=== PATIENT | male | born 1945 ===

== ENCOUNTER → 2016-06-08 | Outpatient (CLI) | payer OTHER | LOC: C.LABUPNIT 14:16 | PROVIDERS: ATTEND Family Medicine | DX: J10.1 Influenza due to other identified influenza virus with other respiratory manifestations (principal) ==

== ENCOUNTER → 2016-11-02 | Outpatient (CLI) | payer OTHER ==
[2016-11-04 23:47] LABS: CRYPTOSPORIDIUM AG TC 37213 NOT DETECTED (NOT DETECTED); O&P GIARDIA AG NOT DETECTED (NOT DETECTED)
== END ==
LOC: C.LABUPNIT 08:30
PROVIDERS: ATTEND Nurse Practitioner Family
DX: A04.7 Enterocolitis due to Clostridium difficile (principal)

== ENCOUNTER → 2016-11-03 | Outpatient (CLI) | payer OTHER | LOC: C.LABUPNIT 11:51 | PROVIDERS: ATTEND Nurse Practitioner Family | DX: S71.001D Unspecified open wound, right hip, subsequent encounter (principal); X58.XXXD Exposure to other specified factors, subsequent encounter ==

== ENCOUNTER 2017-03-11 09:20 | Inpatient (IN) | payer OTHER ==
[~2017-03-11] VITALS: Ht 182.9 cm; Wt 55.7 kg
[2017-03-11] MEDS ORDERED: ONDANSETRON 4MG OD TAB PO STA (09:28)
[2017-03-11] MEDS ORDERED: HYDROmorphone INJ 0.5 MG/0.5 ML SYR IM STA (09:28)
--- NOTE | 2017-03-11 10:02 | DIAGNOSTIC IMAGING REPORT ---
PELVIS 1 OR 2 VIEW ROUTINE CLINICAL HISTORY: Left hip pain COMPARISON STUDY: No previous studies for comparison. FINDINGS: There is acute subcapital left hip fracture. There is no dislocation. There is a moderate amount of stool within the rectal vault. Degenerative changes are present within the lower lumbar spine. IMPRESSION: Subcapital left hip fracture Electronically signed by: Washington Chen M.D. 03/11/2017 10:00 AM Dictated Date/Time: 03/11/2017 10:00 AM
--- NOTE | 2017-03-11 10:03 | DIAGNOSTIC IMAGING REPORT ---
L FEMUR 4 VIEWS ROUTINE CLINICAL HISTORY: Left hip pain. Trauma. COMPARISON: None. DISCUSSION: There is a subcapital left hip fracture. No additional femoral fractures are visualized. Gastric calcifications are evident. IMPRESSION: Subcapital left hip fracture. Electronically signed by: Washington Chen M.D. 03/11/2017 10:01 AM Dictated Date/Time: 03/11/2017 10:01 AM
[2017-03-11] MEDS ORDERED: DONE1TAB11 PO (10:07)
[2017-03-11] MEDS ORDERED: NUTR-1049 PO (10:07)
[2017-03-11] MEDS ORDERED: THIA50TA3 PO (10:07)
[2017-03-11] MEDS ORDERED: ACET-1311 PO ×2 (10:07)
[2017-03-11] MEDS ORDERED: MINEENE9 PR (10:07)
[2017-03-11] MEDS ORDERED: MULT-506 PO (10:07)
[2017-03-11] MEDS ORDERED: MOML PO (10:07)
[2017-03-11] MEDS ORDERED: FOLI1TAB8 PO (10:07)
[2017-03-11] MEDS ORDERED: TRAM-10 PO (10:07)
[2017-03-11] MEDS ORDERED: ASCO500T16 PO (10:07)
[2017-03-11] MEDS ORDERED: MIRT15TA3 PO (10:07)
[2017-03-11] MEDS ORDERED: BISA10SU38 PR (10:07)
[2017-03-11] MEDS ORDERED: HYDROmorphone INJ 0.5 MG/0.5 ML SYR IV PRN (10:15)
--- NOTE | 2017-03-11 10:18 | DIAGNOSTIC IMAGING REPORT ---
CHEST ONE VIEW PORTABLE HISTORY: Preop. Left hip fracture. COMPARISON: None. FINDINGS: The lungs are hyperexpanded with apical predominant emphysematous changes. The heart is normal in size. No pleural effusions. No pneumothorax. Old, healed left 11th rib fracture. A 3 cm irregular density within the left upper lobe. Mild interstitial thickening which is likely chronic. IMPRESSION: 1. A 3 cm irregular density within the left upper lobe. Recommend further evaluation with a chest CT to exclude a pulmonary lesion. 2. Emphysema. Electronically signed by: Mehran Jones M.D. 03/11/2017 10:17 AM Dictated Date/Time: 03/11/2017 10:15 AM
--- NOTE | 2017-03-11 10:56 | EMERGENCY ROOM VISIT NOTE ---
History First contact with patient: 09:27 Chief Complaint: HIP PAIN Stated Complaint: FALL/L-HIP PAIN History of Present Illness The patient is a 71 year old male who presents to the Emergency Room with complaints of left hip pain. Patient fell trying to a related to the bathroom. He reports that he cannot walk on it. The patient is a DO NOT RESUSCITATE. He was sent here from the heart side. The patient has a son who does not wish to be contacted unless the patient is . The fall happened earlier today he denies hitting his head and has no other complaints.. Review of Systems See HPI for pertinent positives & negatives. A total of 10 systems reviewed and were otherwise negative. Past Medical/Surgical History Medical Problems: (1) Dementia (2) Depression (3) Hip fracture, left Surgical Problems: (1) Hx of tonsillectomy Dementia Alcohol Abuse malnourishment Social History Smoking Status: Current Every Day Smoker Alcohol Use: none Drug Use: none Marital Status: single Housing Status: correction Occupation Status: retired Current/Historical Medications Scheduled Ascorbic Acid (Ascorbic Acid), 500 MG PO DAILY Donepezil Hydrochloride (Donepezil Hcl), 5 MG PO DAILY Folic Acid (Folvite), 1 MG PO DAILY Mirtazapine (Remeron), 15 MG PO HS Multivitamin (Multivitamin), 1 TAB PO DAILY Nutritional Supplements (Prosource No Carb), 1 PKT PO DAILY Thiamine Hcl (Vitamin B-1), 50 MG PO DAILY Scheduled PRN Acetaminophen (Tylenol), 650 MG PO Q4 PRN for Fever Acetaminophen (Tylenol), 650 MG PO Q6 PRN for Pain Bisacodyl (Dulcolax), 10 MG MD DAILY PRN for Constipation Magnesium Hydroxide (Milk Of Magnesia), 30 ML PO DAILY PRN for Constipation Mineral Oil (Enema Mineral Oil), 1 BTL MD DAILY PRN for Constipation Tramadol (Ultram), 50 MG PO BID PRN for Pain Physical Exam Vital Signs Date Time Temp Pulse Resp B/P (MAP) Pulse Ox O2 Delivery O2 Flow Rate FiO2 03/11/17 12:45 77 18 118/62 92 Room Air 03/11/17 11:02 72 18 113/58 91 Room Air 03/11/17 09:27 36.6 74 18 130/69 94 Room Air Physical Exam GENERAL: Patient is a cachectic-appearing male HEAD: Normocephalic atraumatic EYES: Ocular movements intact pupils equal and react to light OROPHARYNX mucous membranes are moist no exudates present no erythema or edema present NECK: Supple no nuchal rigidity CHEST: Good equal expansion LUNGS: Clear and equal to auscultation CARDIAC: Normal S1 and S2 ABDOMEN: Soft nontender no guarding BACK: No CVA tenderness EXTREMITIES: palpable pain left hip area, pt can move hip freely, + distal pulse NEURO: Patient is following commands is answering questions appropriately. Alert and oriented x3 Cranial Nerves 2-12 grossly intact Medical Decision & Procedures ER Provider Diagnostic Interpretation: CHEST ONE VIEW PORTABLE HISTORY: Preop. Left hip fracture. COMPARISON: None. FINDINGS: The lungs are hyperexpanded with apical predominant emphysematous changes. The heart is normal in size. No pleural effusions. No pneumothorax. Old, healed left 11th rib fracture. A 3 cm irregular density within the left upper lobe. Mild interstitial thickening which is likely chronic. IMPRESSION: 1. A 3 cm irregular density within the left upper lobe. Recommend further evaluation with a chest CT to exclude a pulmonary lesion. 2. Emphysema. Electronically signed by: Mehran Jones M.D. 03/11/2017 10:17 AM Dictated Date/Time: 03/11/2017 10:15 AM L FEMUR 4 VIEWS ROUTINE CLINICAL HISTORY: Left hip pain. Trauma. COMPARISON: None. DISCUSSION: There is a subcapital left hip fracture. No additional femoral fractures are visualized. Gastric calcifications are evident. IMPRESSION: Subcapital left hip fracture. Electronically signed by: Washington Chen M.D. 03/11/2017 10:01 AM Dictated Date/Time: 03/11/2017 10:01 AM PELVIS 1 OR 2 VIEW ROUTINE CLINICAL HISTORY: Left hip pain COMPARISON STUDY: No previous studies for comparison. FINDINGS: There is acute subcapital left hip fracture. There is no dislocation. There is a moderate amount of stool within the rectal vault. Degenerative changes are present within the lower lumbar spine. IMPRESSION: Subcapital left hip fracture Electronically signed by: Washington Chen M.D. 03/11/2017 10:00 AM Dictated Date/Time: 03/11/2017 10:00 AM Laboratory Results Medications Administered Medications (Trade) Dose Ordered Sig/Eugenia Route Start Time Stop Time Status Last Admin Dose Admin Haloperidol (Haldol Tab) 10 mg NOW STAT PO 03/11/17 13:12 03/11/17 13:14 DC 03/11/17 13:22 10 MG Lorazepam (Ativan Tab) 2 mg NOW STAT SL 03/11/17 13:12 03/11/17 13:14 DC 03/11/17 13:21 2 MG Medical Decision This is a 71-year-old male who presents emergency Department with a left hip fracture. The patient is complaining of left hip pain. He was sent for x-rays of his hip and given a shot of Dilaudid here in the emergency department. X- rays are concerning for a subcapital hip fracture. The patient is refusing any treatment. He is also DO NOT RESUSCITATE. He will not allow the nurses to get an EKG or even laboratory work or even start an IV. Based on these findings I did discuss the case with heart side where the patient is residing as well as orthopedics as well as the patient's son. The patient's son only wishes to be contacted if the patient is . I did however speak with the patient's son who asked for orthopedic recommendations. The patient was then seen by ortho who convinced the patient that he needs surgery. The patient was given Haldol and Ativan in an IV was able to be established. He was discussed with the hospitalist service who agreed to admit the patient. Impression Primary Impression: Hip fracture, left Departure Information Dispostion Still a Patient Referrals Presley Beal (PCP) Patient Instructions My [facility] Problem Qualifiers Primary Impression: Hip fracture, left Encounter type: initial encounter Fracture type: closed Qualified Codes: S72.002A - Fracture of unspecified part of neck of left femur, initial encounter for closed fracture
[2017-03-11] MEDS ORDERED: HALOPERIDOL 5 MG TAB PO STA (13:12)
[2017-03-11] MEDS ORDERED: LORAZEPAM 1 MG TAB SL STA (13:12)
[2017-03-11 14:00] VITALS: O2SAT 93; BMI 15.4
[2017-03-11] MEDS ORDERED: SOD PHOSPHATE/SOD BIPHOSPHATE ENEMA 132 ML BTL PR PRN (14:15)
[2017-03-11] MEDS ORDERED: ONDANSETRON INJ 2 MG/ML 2 ML VIAL IV PRN (14:15)
[2017-03-11] MEDS ORDERED: POLYETHYLENE (MIRALAX) 17 GM PACK PO PRN (14:15)
[2017-03-11] MEDS ORDERED: MAGNESIUM HYDROXIDE SUSP 30 ML UDC PO PRN (14:15)
[2017-03-11] MEDS ORDERED: NALOXONE HCL 0.4 MG/1 ML VIAL/CARP IV PRN (14:15)
[2017-03-11] MEDS ORDERED: BISACODYL 10 MG SUPP PR PRN (14:15)
[2017-03-11 14:25] LABS: BASO % 0.1 %; BASO ABS # 0.01 K/uL (0-0.2); EOS % 0.4 %; EOS ABS # 0.05 K/uL (0-0.5); HEMATOCRIT 42.6 % (42-52); HEMOGLOBIN 13.9 g/dL (14.0-18.0); IG# 0.03 K/uL (0.00-0.02); LYMPH % 4.6 %; LYMPH ABS # 0.59 K/uL (1.2-3.4); MEAN CORPUSCULAR HEMOGLOBIN 27.7 pg (25-34); MEAN CORPUSCULAR HGB CONC 32.6 g/dl (32-36); MEAN PLATELET VOLUME 11.2 fL (7.4-10.4); MONO % 6.2 %; NEUT % 88.5 %; NEUT ABS # 11.34 K/uL (1.4-6.5); PLATELET COUNT 360 K/uL (130-400); RED CELL DISTRIBUTION WIDTH CV 14.9 % (11.5-14.5); RED CELL DISTRIBUTION WIDTH SD 46.2 fL (36.4-46.3); WHITE BLOOD COUNT 12.82 K/uL (4.8-10.8)
[2017-03-11 14:28] LABS: PTT PATIENT 25.9 SECONDS (21.0-31.0)
[2017-03-11] MEDS ORDERED: MoRPHine SULFATE 2 MG/ML CARP ONE (14:29)
[2017-03-11 14:32] LABS: CALCIUM 8.9 mg/dl (8.5-10.1); CREATININE 0.9 mg/dl (0.60-1.40); POTASSIUM 3.8 mmol/L (3.5-5.1)
[2017-03-11 14:58] VITALS: BP 110/68; PULSE 90; TEMP 36.9; O2SAT 94
--- NOTE | 2017-03-11 15:21 | History and Physical ---
History & Physical Date & Time of Service: Mar 11, 2017 at 14:31 Chief Complaint: Fall/L-Hip Pain Primary Care Physician: Presley Beal History of Present Illness Source: patient, hospital records, senior living Pt is 71 y/o M with PMH heavy alcohol use, no use alcohol for couple of years, dementia, depression presented to ER from [facility] with c/o fall and left hip pain. Pt oriented to person, limited history able to be obtained from pt. Reported that pt ambulating to bathroom this morning when he fell and c/o L hip pain and inability to stand or walk. Unsure if hit his head. Pt only c/o pain to L hip. No known fever, SHETTY, CP, SOB, cough, abdominal pain, urinary symptoms In ER pt initially not agreeable to any labs, IV. Femur x-ray: Subcapital left hip fracture. CXR: 3 cm irregular density within the left upper lobe. Emphysema. Pt was given zofran ODT, Dilaudid 0.5mg IM x 2. Then agreeable to IV and labs and agrees to hospital admission for hip fracture and possible repair. Pt given ativan 2mg SL, Haldol 10mg po and dialudid 0.5mg IV. WBC: 12.8. Pt refuses michael. pending UA. Past Medical/Surgical History Medical Problems: (1) Dementia Status: Chronic (2) Depression Status: Chronic Surgical Problems: (1) Hx of tonsillectomy Status: Resolved Family History Diabetes mellitus GRANDMOTHER FH: leukemia FATHER ( age 36) Social History Smoking Status: Former Smoker Smokeless Tobacco Use: Yes Alcohol Use: not used ETOH for couple of years Drug Use: none Marital Status: single Housing status: other ([facility]) Occupational Status: retired Allergies Coded Allergies: No Known Allergies (Unverified , 03/11/17) Home Medications Scheduled Ascorbic Acid (Ascorbic Acid), 500 MG PO DAILY Donepezil Hydrochloride (Donepezil Hcl), 5 MG PO DAILY Folic Acid (Folvite), 1 MG PO DAILY Mirtazapine (Remeron), 15 MG PO HS Multivitamin (Multivitamin), 1 TAB PO DAILY Nutritional Supplements (Prosource No Carb), 1 PKT PO DAILY Thiamine Hcl (Vitamin B-1), 50 MG PO DAILY Scheduled PRN Acetaminophen (Tylenol), 650 MG PO Q4 PRN for Fever Acetaminophen (Tylenol), 650 MG PO Q6 PRN for Pain Bisacodyl (Dulcolax), 10 MG CO DAILY PRN for Constipation Magnesium Hydroxide (Milk Of Magnesia), 30 ML PO DAILY PRN for Constipation Mineral Oil (Enema Mineral Oil), 1 BTL CO DAILY PRN for Constipation Tramadol (Ultram), 50 MG PO BID PRN for Pain Review of Systems Further ROS not able to be obtained secondary to pt's mentation. Physical Exam Vital Signs Date Time Temp Pulse Resp B/P (MAP) Pulse Ox O2 Delivery O2 Flow Rate FiO2 03/11/17 14:10 78 18 125/69 91 Room Air 03/11/17 14:00 93 Room Air 03/11/17 13:34 93 Room Air 03/11/17 12:45 77 18 118/62 92 Room Air 03/11/17 11:02 72 18 113/58 91 Room Air 03/11/17 09:27 36.6 74 18 130/69 94 Room Air General Appearance: + cachetic, + thin Head: normocephalic, atraumatic Eyes: normal inspection, PERRL, EOMI, sclerae normal ENT: hearing grossly normal, pharynx normal, + pertinent finding (mucous membranes moist) Neck: supple, no JVD, trachea midline Respiratory/Chest: chest non-tender, lungs clear, normal breath sounds, no respiratory distress, no accessory muscle use Cardiovascular: regular rate, rhythm, no edema, normal peripheral pulses Abdomen/GI: normal bowel sounds, non tender, soft Extremities/Musculoskelatal: normal capillary refill, no pedal edema, + pertinent finding (Left hip with tenderness to palpation, pt holding left leg straight and unwilling to move. Left knee and ankle non-tender. R lower extremity non-tender, ROM intact, bilateral upper extremities non-tender, ROM intact. upper and lower extremities bilaterally with distal pulses intact, brisk capillary refill, sensation to light touch intact) Neurologic/Psych: alert, + pertinent finding (oriented to person, not oriented to place or time. Irritable ) Skin: normal color, warm/dry Diagnostics Laboratory Results Results Past 24 Hours Test 03/11/17 13:50 Range/Units White Blood Count 12.82 4.8-10.8 K/uL Red Blood Count 5.01 4.7-6.1 M/uL Hemoglobin 13.9 14.0-18.0 g/dL Hematocrit 42.6 42-52 % Mean Corpuscular Volume 85.0 80-100 fL Mean Corpuscular Hemoglobin 27.7 25-34 pg Mean Corpuscular Hemoglobin Concent 32.6 32-36 g/dl Platelet Count 360 130-400 K/uL Mean Platelet Volume 11.2 7.4-10.4 fL Neutrophils (%) (Auto) 88.5 % Lymphocytes (%) (Auto) 4.6 % Monocytes (%) (Auto) 6.2 % Eosinophils (%) (Auto) 0.4 % Basophils (%) (Auto) 0.1 % Neutrophils # (Auto) 11.34 1.4-6.5 K/uL Lymphocytes # (Auto) 0.59 1.2-3.4 K/uL Monocytes # (Auto) 0.80 0.11-0.59 K/uL Eosinophils # (Auto) 0.05 0-0.5 K/uL Basophils # (Auto) 0.01 0-0.2 K/uL RDW Standard Deviation 46.2 36.4-46.3 fL RDW Coefficient of Variation 14.9 11.5-14.5 % Immature Granulocyte % (Auto) 0.2 % Immature Granulocyte # (Auto) 0.03 0.00-0.02 K/uL Prothrombin Time 10.5 9.0-12.0 SECONDS Prothromb Time International Ratio 1.0 0.9-1.1 Activated Partial Thromboplast Time 25.9 21.0-31.0 SECONDS Partial Thromboplastin Ratio 1.0 Diagnostic Radiology CXR: IMPRESSION: 1. A 3 cm irregular density within the left upper lobe. Recommend further evaluation with a chest CT to exclude a pulmonary lesion. 2. Emphysema. FEMUR XRAY: IMPRESSION: Subcapital left hip fracture. PELVIS XRAY: IMPRESSION: Subcapital left hip fracture EKG EKG: NSR, rate 76, non-specific T wave abnormality. Able to find report from EKG 05/27/15 in [facility]: rate 67, non-specific T wave abnormality, QTc 433 Impression Assessment and Plan LEFT HIP FRACTURE Pt had mechanical fall this morning at [facility]. Unsure if hit head. Vitals stable in ER, pt afebrile. Pt not agreeable to head CT. Hx dementia and reported pt at baseline. Pt initially not agreeable to any treatment in ER then agrees to labs, IV, admission. Pt continues to deny michael catheter. In ER given 3 doses Dilaudid 0.5mg, zofran, ativan 2mg SL, Haldol 10mg po. Xray femur: subcapital L hip fracture. CXR: no infiltrate. 1. 3 cm irregular density within the left upper lobe. Recommend further evaluation with a chest CT to exclude a pulmonary lesion. 2. Emphysema. EKG: NSR, rate 76, non-specific T wave abnormality, was also reported on EKG report from 04/2015. WBC: 12 -pending UA -morphine 2mg Q2H prn pain -bedrest -ortho consult -anesthesia consult DEMENTIA reported pt at baseline -continue Aricept HX ETOH ABUSE not used ETOH for couple of years -continue thiamine, B12, folic acid HX DEPRESSION -continue remeron HS DVT PROPHYLAXIS -SCDs as anticipating surgery DISPOSITION -admit med surg -DNR/DNI as per POL -Follows with Dr Rk Pina at [facility] for routine care Pt was seen with Dr Reid. See addendum ADDENDUM: Saw/examined the patient in room 388 He is demented at baseline +thin, +cachectic c/o pain in the L hip. No other complaints at this time. L hip with ecchymosis. Radiographs noted to have subcapital fracture. Spoke with ortho, anesthesia - son is aware. Plan for OR in AM. continue pain medications PRN No cardiac history; risk factor includes his significantly low BMI Level of Care Med/Surg Advanced Directives Existing Living Will: No Existing Power of Accounting Teacher: No Resuscitation Status DO NOT RESUSCITATE VTE Prophylaxis VTE Risk Assessment Done? Y/N: Yes Risk Level: Moderate Given or contraindicated: SCD's Additional Copies To [facility]
--- NOTE | 2017-03-11 15:22 | Anesthesiology Progress Note ---
Anesthesia Progress Note Date of Service Mar 11, 2017. Progress Notes Pt was admitted 2/2 L hip fracture from [facility]. Pt is a poor historian. The pt has a h/o COPD, heavy alcohol use, cirrhosis, and dementia. The pt denies a history of surgery or anesthesia in the past. An EKG showed NSR @ 76 bpm with nonspecific T waves. The pt's CBC and chemistry were unremarkable. The pt states being able to ambulate without assistance and denies CP or SOB. I attempted to contact the pt's son without success. We will attempt to contact the pt's POA to obtain consent/further medical history.
[2017-03-11] MEDS: SODIUM CHLORIDE 0.9% 1000ML 1,000 ML IV SCH (15:51)
[2017-03-11] MEDS ORDERED: PNEUMOCOCCAL ADMINISTRATION CHARGE ONE (16:00)
[2017-03-11] MEDS ORDERED: PNEUMOCOCCAL POLYSACCHARIDES 25 MCG/0.5 ML VIAL/SYR IM. ONE (16:00)
[2017-03-11] MEDS: MoRPHine SULFATE 2 MG/ML CARP IV PRN ×3 (16:10→19:44)
--- NOTE | 2017-03-11 18:35 | CONSULTATION REPORT ---
DATE OF CONSULTATION: 03/11/2017 REASON FOR CONSULT: Left hip fracture. HISTORY OF PRESENT ILLNESS: The patient is a 71-year-old white male who apparently resides at [facility]. He has a h/o dementia and is a poor historian and cannot remember how he hurt his hip. Per the patients current chart the patient had a fall at [facility] and began complaining of left hip pain. He was apparently ambulating to the bathroom that morning when he fell, he was unable to get up on his own and was unable to ambulate. He was brought to the emergency room where he was seen by the staff. X-rays were taken and it was found that he did have a left subcapital hip fracture. He was admitted by the [facility] service and we have been asked to see him for his hip fracture. PAST MEDICAL HISTORY: Dementia, depression, history of heavy alcohol use in the past but none for the last few years. PAST SURGICAL HISTORY: Tonsillectomy. FAMILY HISTORY: Diabetes mellitus, leukemia. SOCIAL HISTORY: Former smoker who does use smokeless tobacco, heavy ETOH for years but has not used in the last couple of years. The patient is single and resides at [facility]. MEDICATIONS: Ascorbic acid 500 mg p.o. daily, donepezil 5 mg p.o. daily, folic acid 1 mg p.o. daily, Remeron 15 mg p.o. at bedtime, multivitamin 1 tab p.o. daily, ProSource 1 packet p.o. daily, thiamine B1 50 mg p.o. daily, Tylenol 650 mg p.o. q. 4-6 hours p.r.n. pain or fever, Dulcolax 10 mg p.o. daily p.r.n., milk of magnesia 30 mL p.o. daily p.r.n., mineral oil 1 bottle p.o. daily p.r.n., tramadol 50 mg p.o. b.i.d. p.r.n. ALLERGIES: NKDA REVIEW OF SYSTEMS: As per admitting history and physical. PHYSICAL EXAMINATION: GENERAL: The patient is a thin, cachectic white male who at the time I saw him was confused with place and time, but was mostly cooperative. EXTREMITIES: On examination of his left lower extremity, he had no major shortening of the left lower extremity but was very guarded in letting me move the left hip. Just mild internal and external rotation of the hip caused him moderate pain and he asked me not to try and do a straight leg raise passively due to the severe pain that he has in the hip. He denies any pain in the right lower extremity. Denies any pain in the left knee or left ankle. Upper extremities are benign at this time and has good range of motion. There is no gross motor or sensory loss seen at this time other than due to left hip fracture pain in the left hip. X-ray review shows subcapital left hip fracture. ASSESSMENT: Left subcapital hip fracture. PLAN: I discussed the case with Dr. Dave who has reviewed patient's films as well. He feels at this time that the best treatment for this would be a bipolar hemiarthroplasty, fearing that patient would not be able to maintain his nonweightbearing status if an ORIF with cannulated screws is performed. I discussed the case with his son who apparently has a strained relationship with his father and he stated that if surgery was needed that we can proceed with what was need to be done and that he would be in to see his father at some point in time. He apparently is the POA of his father. The patient has been added on to the surgical schedule for tomorrow around 1:00 p.m. and plans at that time will be a bipolar hemiarthroplasty by Dr. Dave. BALJIT
[2017-03-11] MEDS: MIRTAZAPINE TAB 15 MG TAB PO SCH (20:31)
[2017-03-11] MEDS: DOCUSATE SODIUM/SENNA 50/8.6MG TAB PO SCH (20:31)
[2017-03-11 23:40] VITALS: BP 128/83; PULSE 88; TEMP 36.5; O2SAT 91
[2017-03-12] VITALS (8 sets, daily range): BP systolic 104–161; BP diastolic 61–84; PULSE 62–99; TEMP 36.6–37.2; O2SAT 91–100; Ht 182.9 cm; Wt 55.7 kg
[2017-03-12] MEDS: SODIUM CHLORIDE 0.9% 1000ML 1,000 ML IV SCH ×3 (00:29→20:40)
[2017-03-12] MEDS: MoRPHine SULFATE 2 MG/ML CARP IV PRN ×2 (00:29→06:06)
[2017-03-12] MEDS ORDERED: CEFAZOLIN 1000MG IV PUSH 5 ML IV SCH (06:00)
[2017-03-12] MEDS ORDERED: CEFAZOLIN IV 2,000 MG in DEXTROSE 5% 50ML 50 ML IV SCH (06:00)
[2017-03-12] MEDS ORDERED: BUPIVACAINE 0.5 % 5 MG/1 ML PF 10ML VIAL ONE (06:44)
[2017-03-12] MEDS: MULTIVITAMIN TAB PO SCH (09:00)
[2017-03-12] MEDS: ASCORBIC ACID 500 MG TAB PO SCH (09:00)
[2017-03-12] MEDS: DONEPEZIL HCL 5 MG TAB PO SCH (09:00)
[2017-03-12] MEDS: THIAMINE HCL 50 MG TAB PO SCH (09:00)
--- NOTE | 2017-03-12 10:18 | Clinical Documentation Query ---
JEMMA Martin : CLINICAL DOCUMENTATION QUERY Patient is a 71 year old admitted s/p fall for evaluation and management of left subcapital hip fracture. BMI noted to be 15.4 kg/m*m at 6 feet tall weighing only 112 pounds. Patient described as cachectic, thin. Unfortunately, "cachectic" is a descriptor and not a clinical diagnosis that our coding department recognizes. Consider capture of this information as suggested below. Thank you. In your clinical opinion is this patient being managed for: ( x ) Cachexia, severe protein-calorie malnutrition ( ) Not Agree ( ) Other explanation of clinical findings (Please Explain) ( ) Unable to determine (Please Define) ( ) Need to Discuss The medical record reflects the following clinical findings, treatment, and risk factors. Clinical Indicators: As above Treatment: Dementia Risk Factors: Age, dementia, immobility, history of alcohol abuse Please clarify and document your clinical opinion in the progress notes and discharge summary. Terms such as "probable", "suspected", "likely", "questionable", "possible", or "still to be ruled out" are acceptable. IF IN AGREEMENT, YOU MUST DOCUMENT ABOVE DIAGNOSTIC STATEMENT IN DAILY PROGRESS NOTES AND DISCHARGE SUMMARY. This document is not part of the patient's record. Thank You, Geovanny Tate, RN [phone]
[2017-03-12] MEDS ORDERED: POVIDONE-IODINE OP SOLN 30 ML BTL ONE (12:08)
[2017-03-12] MEDS ORDERED: BACITRACIN 50000 UNIT VIAL ONE (12:09)
[2017-03-12] MEDS ORDERED: FENTANYL CITRATE INJ 50 MCG/1 ML 2 ML VIAL ONE (12:16)
[2017-03-12] MEDS ORDERED: MIDAZOLAM HCL 1 MG/ML 2ML VIAL ONE (12:17)
--- NOTE | 2017-03-12 13:55 | History & Physical Bridge Note ---
H&P Re-Evaluation Bridge Note: I have examined the patient, reviewed the History & Physical and in the interval since the performance of the History & Physical I have noted the following changes of clinical significance: No changes noted
--- NOTE | 2017-03-12 13:55 | Orthopedic Progress Note ---
Orthopedic Progress Note Date of Service Mar 12, 2017. Subjective Additional Notes: Patient seen in pre operative holding area, c/o left hip pain. Poor historian. Objective NAD LLE NVSI +EHL/FHL, SILT grossly, compartments soft NT, +2 DP pulse, skin intact over left hip Date Time Temp Pulse Resp B/P (MAP) Pulse Ox O2 Delivery O2 Flow Rate FiO2 03/12/17 08:30 Nasal Cannula 2.0 03/12/17 07:45 36.6 86 15 134/82 (99) 91 Nasal Cannula 2.0 03/12/17 00:20 Nasal Cannula 2.0 03/11/17 23:40 36.5 88 18 128/83 (98) 91 Nasal Cannula 2.0 03/11/17 15:40 Nasal Cannula 2.0 03/11/17 14:58 36.9 90 16 110/68 (82) 94 Nasal Cannula 2.0 03/11/17 14:10 78 18 125/69 91 Room Air 03/11/17 14:00 93 Room Air Assessment & Plan Assessment: Left femoral neck fracture Plan: 71 yo male with displaced left femoral neck fracture sustained after a fall. The patient was medically stabilized on 03/12/2017. I indicated the patient for left hip hemiarthroplasty. The next of kin, former privacy manager, Yoel Ambriz , son, was informed of the risks and benefits of surgery, which included but not limited to infection, bleeding, blood clots, damage to nerves, vessels, bone and soft tissue, dislocation, leg length discrepancy, need for additional surgery and . The patients family collectively chose to move forward with surgical intervention and informed consent was obtained.
[2017-03-12] MEDS ORDERED: PROPOFOL IV EMULSION 10 MG/ML 20 ML VIAL IV ONE (14:21)
[2017-03-12] MEDS ORDERED: ONDANSETRON INJ 2 MG/ML 2 ML VIAL IV PRN (14:30)
[2017-03-12] MEDS ORDERED: ATROPINE SULFATE 0.1 MG/ML 5ML SYR IV PRN (14:30)
[2017-03-12] MEDS ORDERED: EpHEDrine SULFATE INJ 50 MG/ML AMP IV PRN (14:30)
[2017-03-12] MEDS ORDERED: PHENYLEPHRINE 100MCG/ML 5ML SYR ONE (15:26)
[2017-03-12] MEDS ORDERED: BUPIVACAINE 0.5 % 5 MG/1 ML MPF 30ML VIAL ONE (15:30)
[2017-03-12] MEDS ORDERED: SODIUM CHLORIDE 0.9% 1000ML 1,000 ML IV SCH (15:42)
[2017-03-12] MEDS ORDERED: NALOXONE HCL 0.4 MG/1 ML VIAL/CARP IV PRN (15:45)
[2017-03-12] MEDS ORDERED: OXYCODONE HCL IR 5 MG TAB (IMMEDIATE RELEASE) PO PRN (15:45)
--- NOTE | 2017-03-12 15:52 | [facility] Operative Report ---
Operative Report Operative Date Mar 12, 2017. Pre-Operative Diagnosis Left femoral neck fracture Post-Operative Diagnosis same as pre-operative Procedure(s) Performed Left Bipolar Hemiarthroplasty- Cemented Surgeon Dr. Will Dave Pilot Manager Surgeon(s) JUNIE Qureshi Estimated Blood Loss 75 ML Findings see dictated op note Specimens A. Left femoral head Drains none Anesthesia spinal Complication(s) None Disposition Recovery Room / PACU Indications 71 yo male with displaced left femoral neck fracture sustained after a fall. The patient was medically stabilized on 03/12/2017. I indicated the patient for left hip hemiarthroplasty. The POA Son, Yoel Ambriz was informed of the risks and benefits of surgery, which included but not limited to infection, bleeding, blood clots, damage to nerves, vessels, bone and soft tissue, dislocation, leg length discrepancy, need for additional surgery and . The patients family collectively chose to move forward with surgical intervention and informed consent was obtained. Description of Procedure Following induction of adequate anesthesia, the patient was transferred to the OR table and placed in the lateral decubitus position with right hip down. The left hip was prepped and draped in usual sterile manner. A posterior incision was made. Subcutaneous tissue was sharply dissected. Electro cautery was used for hemostasis. Fascia was incised throughout the length of the wound and the piriformis was identified. A #1 Vicryl suture was used to tage the piriformis. The short external rotators were divided from the posterior aspect of the femur and a capsulotomy was performed. A second #1 Vicryl suture was used to tag the capsule. Next, I turned my attention to the femoral neck fracture. The fracture was relatively high on the calcar and decision was made to proceed with the oscillating saw and create the calcar osteotomy. This bone fragment was removed. Following this, tenaculum and cob elevater was utilized to remove the femoral head. The head was measured on the back table and the 49 mm femoral head was chosen as the size to be used. Next, attention was turned to the acetabulum which was found to have no significant arthritis. All bony debris was removed. A sponge was placed in the acetabulum. Attention was then turned to the proximal femur where box osteotome was used to gain access to the femoral canal. A canal finder and power lateralizing reamer were utilized to further open. Sequential raspings were taken up to a size 13, which was sunk completely and trial reduction was carried out and a 28/+3.5 mm femoral head was chosen the size to be used with the 49 bipolar cup. Following a trial reduction, the hip was found to be stable to 45 degrees of internal rotation and 90 degrees of flexion with equal leg lengths. The calcar reamer was utilized to smooth the calcar and the instruments and trial components were removed. The hip was thoroughly irrigated with pulsatile irrigation. The canal was irrigated and dried, cement restrictor was placed and [place] cement was mixed. The size 12 low demand fracture stem was placed with a 10 mm centralizer and this was held in position well. All excess cement was removed and cement hardened. Following insertion of final stem component another trial reduction was carried out and again a +3.5 neck size was chosen as the size to be used. The final head and neck was impacted into position and the hip was reduced and stablity assess and was found to be stable to 45 degrees of internal rotation and 90 degrees of flexion. The wound was again irrigated. 30cc .5% marcaine was injected throughout the hip and the capsule was repaired using 5 fiberwire sutures through drill holes. Following this, the short external rotators were reapproximated to the posterior aspect of the femur also through drill holes and these were tied. Once again the wound was copiously irrigated with sterile saline solution. Fascia was closed using #1 Vicryl [id number] sutures, subcutaneous tissue was closed using 2- 0 vicryl, and skin was closed with javier. Sterile dressings xeroform, 4x4's, abd's, foam tape were applied and abduction pillow placed between the legs. The patient tolerated the procedure well and was taken to recovery room in stable condition. Due to the complex nature of the procedure, the entire surgery was performed with the operational assistance of Jani Dumont PA-C. The assistant community manager, under direct supervision, was involved in the actual performance of all aspects of the surgical procedure including hemostasis, tissue retraction and incision, instrument management, patient positioning, and wound closure. I attest to the content of the Intraoperative Record and any orders documented therein. Any exceptions are noted below. I attest to the content of the Intraoperative Record and any orders documented therein. Any exceptions are noted below.
--- NOTE | 2017-03-12 16:30 | Anesthesiology Progress Note ---
Anesthesia Post Op Note Date & Time Mar 12, 2017 at 16:30 Vital Signs Pain Intensity: 0 Vital Signs Past 12 Hours Date Time Temp Pulse Resp B/P (MAP) Pulse Ox O2 Delivery O2 Flow Rate FiO2 03/12/17 15:54 36.8 66 14 104/61 100 Nasal Cannula 3 03/12/17 08:30 Nasal Cannula 2.0 03/12/17 07:45 36.6 86 15 134/82 (99) 91 Nasal Cannula 2.0 Notes Mental Status: alert / awake / arousable, participated in evaluation Pt Amnestic to Procedure: Yes Nausea / Vomiting: adequately controlled Pain: adequately controlled Airway Patency, RR, SpO2: stable & adequate BP & HR: stable & adequate Hydration State: stable & adequate Neuraxial Anesthesia: was administered, sensory block is resolving Anesthetic Complications: no major complications apparent
--- NOTE | 2017-03-12 17:20 | Progress Note ---
Progress Note Date of Service Mar 12, 2017. Progress Note Postoperative progress note Patient seen at bedside, doing well, denies pain, still under spinal anesthesia. Physical exam: Limited secondary to spinal block, +2 DP pulse, compartments soft NT, dressing CDI, abduction pillow in place A/P s/p Left Hip Hemiarthroplasty -WBAT -PT/OT with assistance and walker -Posterior hip precautions -Ancef x 24 -DVT ppx - EC ASA BID -Pain controlled -PO XR - pending -Dressing change POD#2 03/14/17 -am labs
--- NOTE | 2017-03-12 18:00 | DIAGNOSTIC IMAGING REPORT ---
L HIP UNILATERAL 2 VIEWS CLINICAL HISTORY: s/p left hip hemiarthroplasty postoperative evaluation COMPARISON: None. DISCUSSION: Anatomic alignment status post total left hip arthroplasty. Good contact between prosthetic and underlying bone. Expected soft tissue postoperative change. IMPRESSION: Anatomic alignment status post left hip arthroplasty. The above report was generated using voice recognition software. It may contain grammatical, syntax or spelling errors. Electronically signed by: Peng Marc M.D. 03/12/2017 5:59 PM Dictated Date/Time: 03/12/2017 5:57 PM
[2017-03-12] MEDS: ONDANSETRON INJ 2 MG/ML 2 ML VIAL IV PRN (20:40)
[2017-03-12] MEDS: ASPIRIN/ALUM/MAGNES/CAL CARB 325 MG TAB PO SCH (20:40)
[2017-03-12] MEDS: DOCUSATE SODIUM/SENNA 50/8.6MG TAB PO SCH ×2 (20:41)
[2017-03-12] MEDS: MIRTAZAPINE TAB 15 MG TAB PO SCH (20:41)
[2017-03-12] MEDS: CEFAZOLIN IV 1,000 MG in DEXTROSE 5% 50ML 50 ML IV SCH (21:54)
--- NOTE | 2017-03-12 22:56 | Progress Note ---
Medicine Progress Note Date & Time of Visit: Mar 12, 2017 at ~ 18:00 . Subjective CC: Follow-up visit for left femoral neck fracture. HPI: ORIF for left femoral neck fracture performed by Dr. Dave this afternoon. Patient returned to floor postop. Patient is alert, but not willing to answer any questions and not willing to be examined. ROS: Unable to obtain review of systems . Objective Last 8 Hrs Date Time Temp Pulse Resp B/P (MAP) Pulse Ox O2 Delivery O2 Flow Rate FiO2 03/12/17 20:53 37.1 03/12/17 19:38 78 18 112/67 (82) 100 Nasal Cannula 3.0 03/12/17 19:05 99 20 161/81 (107) 98 Nasal Cannula 3.0 03/12/17 17:35 62 20 110/69 (83) 99 Nasal Cannula 3.0 03/12/17 17:05 78 18 104/61 (75) 03/12/17 16:35 Nasal Cannula 3.0 03/12/17 16:35 Nasal Cannula 3.0 03/12/17 16:35 89 20 143/84 (103) 03/12/17 16:29 67 21 98 03/12/17 16:29 36.4 67 21 03/12/17 16:25 123/69 03/12/17 16:24 73 19 97 03/12/17 16:24 73 19 03/12/17 16:20 107/63 03/12/17 16:19 66 13 99 03/12/17 16:19 68 13 03/12/17 16:15 100/65 03/12/17 16:14 73 22 98 03/12/17 16:14 71 22 03/12/17 16:10 129/65 03/12/17 16:09 70 18 100 03/12/17 16:09 70 18 03/12/17 16:05 109/62 03/12/17 16:04 63 16 03/12/17 16:04 62 16 100 03/12/17 16:00 101/60 03/12/17 15:59 63 20 03/12/17 15:59 64 20 100 03/12/17 15:58 104/61 03/12/17 15:54 36.8 66 14 104/61 100 Nasal Cannula 3 Physical Exam: General- no apparent distress Patient unwilling to be examined. . Assessment & Plan LEFT FEMORAL NECK FRACTURE ORIF performed today. PT / OT. Check vitamin D level. DEMENTIA Continue donepezil. Monitor for delirium. REMOTE HISTORY ALCOHOL ABUSE Continue thiamine. VTE PROPHYLAXIS SCD's. DISPOSITION Expected return to [facility]. . Current Inpatient Medications: Current Inpatient Medications Medications (Trade) Dose Ordered Sig/Eugenia Route Start Time Stop Time Status Last Admin Dose Admin Sodium Chloride 1,000 ml @ 100 mls/hr Q10H IV 03/11/17 14:06 04/10/17 14:05 03/12/17 20:40 100 MLS/HR Morphine Sulfate (MoRPHine SULFATE INJ) 2 mg Q2H PRN IV 03/11/17 14:15 03/25/17 14:14 03/12/17 06:06 2 MG Naloxone HCl (Narcan Inj) 0.1 mg PRN PRN IV 03/11/17 14:15 04/10/17 14:14 Senna/Docusate Sodium (Senokot S Tab) 2 tab HS PO 03/11/17 21:00 04/10/17 20:59 Polyethylene (Miralax Powder Packet) 17 gm DAILY PRN PO 03/11/17 14:15 04/10/17 14:14 Magnesium Hydroxide (Milk Of Magnesia Susp) 30 ml DAILY PRN PO 03/11/17 14:15 04/10/17 14:14 Bisacodyl (Dulcolax Supp) [address] 03/11/17 14:15 04/10/17 14:14 Sodium Biphosphate/ Sodium Phosphate (Fleet Enema) [address] 03/11/17 14:15 Ascorbic Acid (Vitamin C Tab) 500 mg DAILY PO 03/12/17 09:00 04/11/17 08:59 Donepezil HCl (Aricept Tab) 5 mg DAILY PO 03/12/17 09:00 04/11/17 08:59 Folic Acid (Folvite Tab) 1 mg DAILY PO 03/12/17 09:00 04/11/17 08:59 Mirtazapine (Remeron Tab) 15 mg HS PO 03/11/17 21:00 04/10/17 20:59 03/12/17 20:41 15 MG Multivitamins (Multivitamin Tab) 1 tab DAILY PO 03/12/17 09:00 04/11/17 08:59 Thiamine HCl (Vitamin B-1 Tab) 50 mg DAILY PO 03/12/17 09:00 04/11/17 08:59 Sodium Chloride 1,000 ml @ 0 mls/hr Q0M IV 03/12/17 15:42 04/11/17 15:41 Cefazolin Sodium 1000 mg/Dextrose 55 ml @ 100 mls/hr Q8H IV 03/12/17 22:00 03/13/17 06:32 Ondansetron HCl (Zofran Inj) 4 mg Q6H PRN IV 03/12/17 15:45 04/11/17 15:44 03/12/17 20:40 4 MG Oxycodone HCl (Roxicodone Immediate Rel Tab) 5 mg Q4H PRN PO 03/12/17 15:45 03/26/17 15:44 Oxycodone HCl (Roxicodone Immediate Rel Tab) 10 mg Q4H PRN PO 03/12/17 15:45 03/26/17 15:44 Aspirin/Aluminum/ Magnesium/Ca Carb (Ascriptin Tab) 325 mg BID PO 03/12/17 21:00 04/11/17 20:59 03/12/17 20:40 325 MG Morphine Sulfate (MoRPHine SULFATE INJ) 4 mg Q4 PRN IV 03/12/17 15:45 03/26/17 15:44 Naloxone HCl (Narcan Inj) 0.4 mg Q1M PRN IV 03/12/17 15:45 04/11/17 15:44 Senna/Docusate Sodium (Senokot S Tab) 2 tab HS PO 03/12/17 21:00 04/11/17 20:59 03/12/17 20:41 2 TAB
[2017-03-13] VITALS (11 sets, daily range): BP systolic 103–109; BP diastolic 64–67; PULSE 84–108; TEMP 36.5–37.9; O2SAT 51–94
[2017-03-13] MEDS: SODIUM CHLORIDE 0.9% 1000ML 1,000 ML IV SCH ×2 (06:15→15:47)
[2017-03-13] MEDS: CEFAZOLIN IV 1,000 MG in DEXTROSE 5% 50ML 50 ML IV SCH (06:15)
[2017-03-13] MEDS: THIAMINE HCL 50 MG TAB PO SCH (07:45)
[2017-03-13] MEDS: ASPIRIN/ALUM/MAGNES/CAL CARB 325 MG TAB PO SCH ×2 (07:45→21:13)
[2017-03-13] MEDS: OXYCODONE HCL IR 5 MG TAB (IMMEDIATE RELEASE) PO PRN ×2 (07:45→13:02)
[2017-03-13] MEDS: MULTIVITAMIN TAB PO SCH (07:45)
[2017-03-13] MEDS: DONEPEZIL HCL 5 MG TAB PO SCH (07:45)
[2017-03-13] MEDS: ASCORBIC ACID 500 MG TAB PO SCH (07:45)
--- NOTE | 2017-03-13 07:53 | Orthopedic Progress Note ---
Orthopedic Progress Note Date of Service Mar 13, 2017. Subjective Post OP Day: 1 Denies: chest pain, SOB, nausea / vomiting, light headedness, calf pain Additional Notes: Patient states he has some soreness in his hip when laying in bed. He denies any other symptoms at the time of exam. Objective calves soft nontender, N/V intact, capillary refill less than 2 sec., dressing C /D/I, A&O x3, toes mobile Date Time Temp Pulse Resp B/P (MAP) Pulse Ox O2 Delivery O2 Flow Rate FiO2 03/13/17 06:55 36.5 84 18 107/67 (80) 89 3.0 03/13/17 03:46 90 Nasal Cannula 3.0 03/13/17 03:45 36.7 92 18 109/66 (80) 86 Nasal Cannula 2.0 03/13/17 00:15 Nasal Cannula 2.0 03/12/17 23:15 37.2 90 18 128/73 (91) 91 Nasal Cannula 2.0 03/12/17 20:53 37.1 03/12/17 19:38 78 18 112/67 (82) 100 Nasal Cannula 3.0 03/12/17 19:05 99 20 161/81 (107) 98 Nasal Cannula 3.0 03/12/17 17:35 62 20 110/69 (83) 99 Nasal Cannula 3.0 03/12/17 17:05 78 18 104/61 (75) 03/12/17 16:35 Nasal Cannula 3.0 03/12/17 16:35 Nasal Cannula 3.0 03/12/17 16:35 89 20 143/84 (103) 03/12/17 16:29 67 21 98 03/12/17 16:29 36.4 67 21 03/12/17 16:25 123/69 03/12/17 16:24 73 19 97 03/12/17 16:24 73 19 03/12/17 16:20 107/63 03/12/17 16:19 66 13 99 03/12/17 16:19 68 13 03/12/17 16:15 100/65 03/12/17 16:14 73 22 98 03/12/17 16:14 71 22 03/12/17 16:10 129/65 03/12/17 16:09 70 18 100 03/12/17 16:09 70 18 1/12/18 16:05 109/62 03/12/17 16:04 63 16 03/12/17 16:04 62 16 100 03/12/17 16:00 101/60 03/12/17 15:59 63 20 03/12/17 15:59 64 20 100 03/12/17 15:58 104/61 03/12/17 15:54 36.8 66 14 104/61 100 Nasal Cannula 3 03/12/17 08:30 Nasal Cannula 2.0 Laboratory Results 24 Hours: Test 03/13/17 04:44 Assessment & Plan Assessment: 71 y/o male POD#1 S/P left Bipolar Hemiarthroplasty. Plan: Medical management PT/OT DVT prophylaxis - Discharge - [facility] when medically stable.
--- NOTE | 2017-03-13 10:35 | Progress Note ---
Medicine Progress Note Date & Time of Visit: Mar 13, 2017 at 08:50 . Subjective CC: Follow-up visit for femur fracture. HPI: Somewhat more cooperative than yesterday, but refused blood work this morning. Ate some breakfast. Postop pain fairly well controlled. ROS: General- no fever, no chills Resp- no cough; no shortness of breath Cardiac- no chest pain, no edema GI- no nausea, no vomiting, no diarrhea, no constipation - Glover cath . Objective Last 8 Hrs Date Time Temp Pulse Resp B/P (MAP) Pulse Ox O2 Delivery O2 Flow Rate FiO2 03/13/17 06:55 36.5 84 18 107/67 (80) 89 3.0 03/13/17 03:46 90 Nasal Cannula 3.0 03/13/17 03:45 36.7 92 18 109/66 (80) 86 Nasal Cannula 2.0 Physical Exam: General- no apparent distress Lungs- few scattered rhonchi; no respiratory distress Cardiovascular- RRR, no gallop, no JVD, no pretibial edema Abd- + BS, soft, nontender Extr- no cyanosis, no calf tenderness Neuro- alert, somewhat confused (year = 2012, president = Josias) Skin- warm and dry . Laboratory Results: Last 24 Hours Test 03/13/17 04:44 Assessment & Plan LEFT FEMORAL NECK FRACTURE ORIF performed 03/12. POD # 1. PT / OT. OSTEOPOROSIS Check vitamin D level. COPD Emphysematous changes noted on chest x-ray. Details of past history uncertain. O2, incentive spirometry, nebs PRN. PULMONARY MASS 3 cm BETHANY density noted on chest x-ray. No prior films available for comparison. Need to clarify past history and subsequent management. DEMENTIA Continue donepezil. Monitor for delirium. REMOTE HISTORY ALCOHOL ABUSE Continue thiamine. VTE PROPHYLAXIS SCD's. DISPOSITION Expected return to [facility]. . Current Inpatient Medications: Current Inpatient Medications Medications (Trade) Dose Ordered Sig/Eugenia Route Start Time Stop Time Status Last Admin Dose Admin Sodium Chloride 1,000 ml @ 100 mls/hr Q10H IV 03/11/17 14:06 04/10/17 14:05 03/13/17 06:15 100 MLS/HR Morphine Sulfate (MoRPHine SULFATE INJ) 2 mg Q2H PRN IV 03/11/17 14:15 03/25/17 14:14 03/12/17 06:06 2 MG Naloxone HCl (Narcan Inj) 0.1 mg PRN PRN IV 03/11/17 14:15 04/10/17 14:14 Senna/Docusate Sodium (Senokot S Tab) 2 tab HS PO 03/11/17 21:00 04/10/17 20:59 Polyethylene (Miralax Powder Packet) 17 gm DAILY PRN PO 03/11/17 14:15 04/10/17 14:14 Magnesium Hydroxide (Milk Of Magnesia Susp) 30 ml DAILY PRN PO 03/11/17 14:15 04/10/17 14:14 Bisacodyl (Dulcolax Supp) 10 mg DAILY PRN [place] 03/11/17 14:15 04/10/17 14:14 Sodium Biphosphate/ Sodium Phosphate (Fleet Enema) 132 ml PRN PRN [place] 03/11/17 14:15 Ascorbic Acid (Vitamin C Tab) 500 mg DAILY PO 03/12/17 09:00 04/11/17 08:59 Donepezil HCl (Aricept Tab) 5 mg DAILY PO 03/12/17 09:00 04/11/17 08:59 Folic Acid (Folvite Tab) 1 mg DAILY PO 03/12/17 09:00 04/11/17 08:59 Mirtazapine (Remeron Tab) 15 mg HS PO 03/11/17 21:00 04/10/17 20:59 03/12/17 20:41 15 MG Multivitamins (Multivitamin Tab) 1 tab DAILY PO 03/12/17 09:00 04/11/17 08:59 Thiamine HCl (Vitamin B-1 Tab) 50 mg DAILY PO 03/12/17 09:00 04/11/17 08:59 Sodium Chloride 1,000 ml @ 0 mls/hr Q0M IV 03/12/17 15:42 04/11/17 15:41 Ondansetron HCl (Zofran Inj) 4 mg Q6H PRN IV 03/12/17 15:45 04/11/17 15:44 03/12/17 20:40 4 MG Oxycodone HCl (Roxicodone Immediate Rel Tab) 5 mg Q4H PRN PO 03/12/17 15:45 03/26/17 15:44 Oxycodone HCl (Roxicodone Immediate Rel Tab) 10 mg Q4H PRN PO 03/12/17 15:45 03/26/17 15:44 Aspirin/Aluminum/ Magnesium/Ca Carb (Ascriptin Tab) 325 mg BID PO 03/12/17 21:00 04/11/17 20:59 03/12/17 20:40 325 MG Morphine Sulfate (MoRPHine SULFATE INJ) 4 mg Q4 PRN IV 03/12/17 15:45 03/26/17 15:44 Naloxone HCl (Narcan Inj) 0.4 mg Q1M PRN IV 03/12/17 15:45 04/11/17 15:44 Senna/Docusate Sodium (Senokot S Tab) 2 tab HS PO 03/12/17 21:00 04/11/17 20:59 03/12/17 20:41 2 TAB
[2017-03-13 11:23] LABS: HEMATOCRIT 31.7 % (42-52); HEMOGLOBIN 10.4 g/dL (14.0-18.0); MEAN CORPUSCULAR HEMOGLOBIN 27.9 pg (25-34); MEAN CORPUSCULAR HGB CONC 32.8 g/dl (32-36); MEAN PLATELET VOLUME 10.7 fL (7.4-10.4); PLATELET COUNT 248 K/uL (130-400); RED CELL DISTRIBUTION WIDTH CV 15.4 % (11.5-14.5); RED CELL DISTRIBUTION WIDTH SD 47.5 fL (36.4-46.3); WHITE BLOOD COUNT 11.11 K/uL (4.8-10.8)
[2017-03-13 11:24] LABS: CALCIUM 7.8 mg/dl (8.5-10.1); CREATININE 0.97 mg/dl (0.60-1.40); POTASSIUM 3.5 mmol/L (3.5-5.1)
[2017-03-13] MEDS ORDERED: LEVALBUTEROL 0.63MG/3 ML NEB INH PRN (16:30)
[2017-03-13] MEDS ORDERED: FUROSEMIDE INJ 20 MG in SYRINGE 0 ML IV SCH (16:45)
[2017-03-13] MEDS ORDERED: POTASSIUM CHLORIDE 20 MEQ TABCR PO ONE (16:45)
[2017-03-13] MEDS ORDERED: LEVALBUTEROL 0.63MG/3 ML NEB INH SCH (16:45)
--- NOTE | 2017-03-13 17:04 | DIAGNOSTIC IMAGING REPORT ---
CHEST ONE VIEW PORTABLE CLINICAL HISTORY: hypoxia dyspnea COMPARISON STUDY: 03/11/2017 FINDINGS: Progressive parenchymal infiltrative change throughout both hemithoraces. Baseline emphysematous changes similar. Diaphragms smooth but somewhat flattened. IMPRESSION: 1. Progressive parenchymal infiltrates throughout both hemithoraces. 2. Baseline emphysematous change. The above report was generated using voice recognition software. It may contain grammatical, syntax or spelling errors. Electronically signed by: Peng Marc M.D. 03/13/2017 5:03 PM Dictated Date/Time: 03/13/2017 5:02 PM
[2017-03-13] MEDS: LEVALBUTEROL 1.25MG/0.5ML NEB INH SCH (20:00)
[2017-03-13] MEDS: IPRATROPIUM BROMIDE NEB SOLN 0.02% 2.5 ML VIAL INH SCH (20:00)
[2017-03-13] MEDS: DOCUSATE SODIUM/SENNA 50/8.6MG TAB PO SCH ×2 (21:00)
[2017-03-13] MEDS: MIRTAZAPINE TAB 15 MG TAB PO SCH (21:14)
[2017-03-14] VITALS (14 sets, daily range): BP systolic 97–119; BP diastolic 56–76; PULSE 78–88; TEMP 36.4–37.2; O2SAT 93–99
[2017-03-14] MEDS ORDERED: FUROSEMIDE INJ 20 MG in SYRINGE 0 ML IV STA (00:12)
[2017-03-14 00:44] LABS: BASO % 0.1 %; BASO ABS # 0.01 K/uL (0-0.2); HEMATOCRIT 31.5 % (42-52); HEMOGLOBIN 10.4 g/dL (14.0-18.0); IG# 0.06 K/uL (0.00-0.02); LYMPH % 3.2 %; LYMPH ABS # 0.52 K/uL (1.2-3.4); MEAN CORPUSCULAR HEMOGLOBIN 27.7 pg (25-34); MEAN PLATELET VOLUME 10.7 fL (7.4-10.4); MONO % 6.3 %; MONO ABS # 1.03 K/uL (0.11-0.59); NEUT ABS # 14.76 K/uL (1.4-6.5); PLATELET COUNT 267 K/uL (130-400); RED CELL DISTRIBUTION WIDTH CV 15.4 % (11.5-14.5); RED CELL DISTRIBUTION WIDTH SD 47.3 fL (36.4-46.3); WHITE BLOOD COUNT 16.38 K/uL (4.8-10.8)
[2017-03-14 01:09] LABS: ALBUMIN 2.5 gm/dl (3.4-5.0); CALCIUM 7.9 mg/dl (8.5-10.1); CREATININE 1.1 mg/dl (0.60-1.40); POTASSIUM 3.6 mmol/L (3.5-5.1); TOTAL PROTEIN 6.3 gm/dl (6.4-8.2)
[2017-03-14] MEDS ORDERED: OPTIRAY 320 IV PRN (06:15)
[2017-03-14] MEDS ORDERED: FUROSEMIDE INJ 40 MG in SYRINGE 0 ML IV ONE (06:15)
--- NOTE | 2017-03-14 07:10 | DIAGNOSTIC IMAGING REPORT ---
CHEST CTA for PULMONARY ARTERIES CT DOSE: 281.98 mGy.cm HISTORY: Hypoxia. TECHNIQUE: Multiaxial CT images of the chest were performed following the intravenous administration of contrast to evaluate the pulmonary arteries. Maximal intensity projection images were also obtained. A dose lowering technique was utilized adhering to the principles of ALARA. COMPARISON STUDY: Chest 03/14/2017. FINDINGS: There is a 5.4 x 4.7 cm infrarenal abdominal aortic aneurysm. This is partially visualized on this study. Otherwise, normal caliber thoracic aorta with no evidence for dissection. The heart is normal in size. No pleural or pericardial effusions. Respiratory motion artifact resulting in suboptimal evaluation of the majority of the bibasilar subsegmental pulmonary arteries. However, no definite filling defects identified within the pulmonary arteries to suggest pulmonary embolus. No fractures within the visualized osseous structures. The visualized liver and spleen are unremarkable. Mild bilateral adrenal gland thickening which is likely age-related. No significant mediastinal or hilar lymphadenopathy. No pneumothorax. Severe emphysema. Mucoid material partial opacification of the right bronchus intermedius and right lower lobe bronchi. Small linear scarlike densities within the lung apices. The left apical linear density is partially calcified. Small patchy airspace opacities within the left lower lobe posteriorly and left upper lobe posteriorly. There are also patchy airspace opacities seen within the right lower lobe posteriorly. An 8 mm groundglass nodule within the right upper lobe on image 305. IMPRESSION: 1. No evidence for pulmonary embolus. 2. There is mucoid material within the right bronchus intermedius and right lower lobe bronchi resulting in partial opacification. This could be due to aspiration. 3. Patchy airspace opacities within the bilateral lobes and left upper lobe posteriorly. This likely represents a pneumonia. 4. Severe emphysema. 5. A 5.4 x 4.7 cm infrarenal abdominal aortic aneurysm which is partially visualized. Nonemergent ultrasound follow up can be performed to assess for the true size of the aneurysm. 6. An 8 mm groundglass nodule within the right upper lobe. Six-month chest CT follow up is recommended to ensure stability. Electronically signed by: Mehran Joens M.D. 03/14/2017 7:08 AM Dictated Date/Time: 03/14/2017 6:55 AM
--- NOTE | 2017-03-14 07:34 | DIAGNOSTIC IMAGING REPORT ---
CHEST ONE VIEW PORTABLE HISTORY: hypoxia COMPARISON: Chest 03/13/2017. FINDINGS: Severe emphysema. Patchy airspace opacities within the left midlung zone and right lower lobe are again noted. There is diffuse interstitial thickening. No pleural effusions. No pneumothorax. The heart is normal in size. IMPRESSION: 1. Small patchy airspace opacities seen within the left midlung zone and right lower lobe are again noted. This likely represents a pneumonia. 2. Emphysema. Electronically signed by: Mehran Jones M.D. 03/14/2017 7:32 AM Dictated Date/Time: 03/14/2017 7:31 AM
[2017-03-14] MEDS: LEVALBUTEROL 1.25MG/0.5ML NEB INH SCH ×4 (08:03→20:00)
[2017-03-14] MEDS: IPRATROPIUM BROMIDE NEB SOLN 0.02% 2.5 ML VIAL INH SCH ×4 (08:03→20:00)
--- NOTE | 2017-03-14 08:09 | Orthopedic Progress Note ---
Orthopedic Progress Note Date of Service Mar 14, 2017. Subjective Post OP Day: 2 Reports: feeling well, pain controlled w PO medications, Denies: complaints, chest pain, SOB, nausea / vomiting, light headedness, calf pain Objective calves soft nontender, N/V intact, capillary refill less than 2 sec., dressing C /D/I, toes mobile Patient was sleepy on exam. His only complaint was tired. Date Time Temp Pulse Resp B/P (MAP) Pulse Ox O2 Delivery O2 Flow Rate FiO2 03/14/17 08:01 High Flow Oxygen 03/14/17 07:57 36.4 78 18 119/76 (90) 96 High Flow Oxygen 03/14/17 04:35 99 High Flow Oxygen 03/13/17 23:30 91 Oxymask 8.0 03/13/17 23:25 88 Oxymask 7.0 03/13/17 23:15 37.9 108 16 103/64 (77) 51 Room Air 03/13/17 21:11 92 Room Air 03/13/17 19:41 94 Oxymask 7.0 03/13/17 17:00 102 91 Mask 6.0 03/13/17 16:20 87 Oxymask 6.0 03/13/17 16:05 36.7 99 24 108/67 (81) 82 Nasal Cannula 4.0 03/13/17 09:30 Nasal Cannula 3.0 Laboratory Results 24 Hours: Test 03/13/17 10:26 03/14/17 00:33 Hematocrit 31.7 % 31.5 % Hemoglobin 10.4 g/dL 10.4 g/dL White Blood Count 16.38 K/uL Red Blood Count 3.75 M/uL Mean Corpuscular Volume 84.0 fL Mean Corpuscular Hemoglobin 27.7 pg Mean Corpuscular Hemoglobin Concent 33.0 g/dl Platelet Count 267 K/uL Mean Platelet Volume 10.7 fL Neutrophils (%) (Auto) 90.0 % Lymphocytes (%) (Auto) 3.2 % Monocytes (%) (Auto) 6.3 % Eosinophils (%) (Auto) 0.0 % Basophils (%) (Auto) 0.1 % Neutrophils # (Auto) 14.76 K/uL Lymphocytes # (Auto) 0.52 K/uL Monocytes # (Auto) 1.03 K/uL Eosinophils # (Auto) 0.00 K/uL Basophils # (Auto) 0.01 K/uL Assessment & Plan Assessment: 71 y/o male POD#2 S/P left Bipolar Hemiarthroplasty. Plan: Medical management PT/OT DVT prophylaxis - ASA Discharge - [facility] when medically stable.
--- NOTE | 2017-03-14 08:43 | Progress Note ---
Medicine Progress Note Date & Time of Visit: Mar 14, 2017 at 08:20 . Subjective CC: Follow-up visit for -f-[id number]-m-[id number]-r- left femoral neck fracture and other problems. [corrected JC03/13/17 09:16] HPI: Hypoxic in 80's late yesterday afternoon. Received IV furosemide with initial improvement, but oxygenation worsened later in the evening. BNP markedly elevated. Received additional furosemide, but still required high FIO2's. CTA chest negative for PE, but showed bilat infiltrates as well as mucoid material within the right bronchus intermedius and right lower lobe bronchi. This morning he has a congested nonproductive cough. Low grade temp last night. No chest pain. Nauseated, but no emesis. Has some postop pain. ROS: as noted above in HPI . Objective Last 8 Hrs Date Time Temp Pulse Resp B/P (MAP) Pulse Ox O2 Delivery O2 Flow Rate FiO2 03/14/17 08:03 86 20 93 Nasal Cannula 40.0 95 03/14/17 08:01 High Flow Oxygen 03/14/17 07:57 36.4 78 18 119/76 (90) 96 High Flow Oxygen 03/14/17 04:35 99 High Flow Oxygen Physical Exam: General- lying in bed, moderate distress Lungs- scattered rhonchi, diffuse wheezing; moderate respiratory distress Cardiovascular- RRR, tachy, no gallop appreciated, no JVD, no pretibial edema Abd- + BS, soft, nontender Extr- no cyanosis, no calf tenderness; SCD's applied Neuro- confused Skin- warm and dry . Laboratory Results: Last 24 Hours Test 03/13/17 10:26 03/14/17 00:29 03/14/17 00:33 03/14/17 08:00 White Blood Count 11.11 K/uL 16.38 K/uL Red Blood Count 3.73 M/uL 3.75 M/uL Hemoglobin 10.4 g/dL 10.4 g/dL Hematocrit 31.7 % 31.5 % Mean Corpuscular Volume 85.0 fL 84.0 fL Mean Corpuscular Hemoglobin 27.9 pg 27.7 pg Mean Corpuscular Hemoglobin Concent 32.8 g/dl 33.0 g/dl RDW Standard Deviation 47.5 fL 47.3 fL RDW Coefficient of Variation 15.4 % 15.4 % Platelet Count 248 K/uL 267 K/uL Mean Platelet Volume 10.7 fL 10.7 fL Sodium Level 138 mmol/L 139 mmol/L Potassium Level 3.5 mmol/L 3.6 mmol/L Chloride Level 110 mmol/L 107 mmol/L Carbon Dioxide Level 24 mmol/L 22 mmol/L Anion Gap 4.0 mmol/L 10.0 mmol/L Blood Urea Nitrogen 16 mg/dl 20 mg/dl Creatinine 0.97 mg/dl 1.10 mg/dl Est Creatinine Clear Calc Drug Dose 49.4 ml/min 43.6 ml/min Estimated GFR () 89.4 76.8 Estimated GFR (Non- 77.1 66.2 BUN/Creatinine Ratio 16.1 18.1 Random Glucose 135 mg/dl 136 mg/dl Calcium Level 7.8 mg/dl 7.9 mg/dl Prealbumin 7.4 mg/dl Vitamin B12 Level 372 pg/mL 25-Hydroxy Vitamin D Total 19.2 ng/ml Thyroid Stimulating Hormone (TSH) 2.250 uIu/ml Arterial Blood pH 7.45 Arterial Blood Partial Pressure CO2 31 mmHg Arterial Blood Partial Pressure O2 65 mm/Hg Arterial Blood HCO3 21 mmol/L Arterial Blood Oxygen Saturation 91.2 % Arterial Blood Base Excess -2.2 mEq/L Arterial Blood Gas Delivery 8 L Shaq Test POS Neutrophils (%) (Auto) 90.0 % Lymphocytes (%) (Auto) 3.2 % Monocytes (%) (Auto) 6.3 % Eosinophils (%) (Auto) 0.0 % Basophils (%) (Auto) 0.1 % Neutrophils # (Auto) 14.76 K/uL Lymphocytes # (Auto) 0.52 K/uL Monocytes # (Auto) 1.03 K/uL Eosinophils # (Auto) 0.00 K/uL Basophils # (Auto) 0.01 K/uL Immature Granulocyte % (Auto) 0.4 % Immature Granulocyte # (Auto) 0.06 K/uL Total Bilirubin 0.7 mg/dl Aspartate Amino Transf (AST/SGOT) 33 U/L Alanine Aminotransferase (ALT/SGPT) 21 U/L Alkaline Phosphatase 69 U/L Pro-B-Type Natriuretic Peptide 08912 pg/ml Total Protein 6.3 gm/dl Albumin 2.5 gm/dl Globulin 3.8 gm/dl Albumin/Globulin Ratio 0.7 Diagnostic Imaging: CTA CHEST: IMPRESSION: 1. No evidence for pulmonary embolus. 2. There is mucoid material within the right bronchus intermedius and right lower lobe bronchi resulting in partial opacification. This could be due to aspiration. 3. Patchy airspace opacities within the bilateral lobes and left upper lobe posteriorly. This likely represents a pneumonia. 4. Severe emphysema. 5. A 5.4 x 4.7 cm infrarenal abdominal aortic aneurysm which is partially visualized. Nonemergent ultrasound follow up can be performed to assess for the true size of the aneurysm. 6. An 8 mm groundglass nodule within the right upper lobe. Six-month chest CT follow up is recommended to ensure stability. Electronically signed by: Mehran Jones M.D. 03/14/2017 7:08 AM . Assessment & Plan ACUTE HYPOXIC RESPIRATORY FAILURE Worsening respiratory status over past 24 hours. PE ruled out by CTA. Contributing factors may include: (1) pulmonary edema (interstitial prominence on CXR, elevated BNP) (2) possible pneumonia (3) exacerbation COPD Received 3 doses of furosemide. Accurate output not available due to incontinence. Follow labs, volume status. Continue O2, nebs. Add IV methylprednisolone. Check blood cultures, lactate, procalcitonin. Start antibiotic therapy. MRSA nasal swab negative, no MRSA pneumonia unlikely. Best to avoid quinolones due to confusion. Rx with IV piperacillin / tazobactam pending culture results. LEFT FEMORAL NECK FRACTURE ORIF performed 03/12. POD # 2. PT / OT when medically stable. OSTEOPOROSIS Vitamin D level = 19. Supplement. Follow. COPD Emphysematous changes noted on admission chest x-ray. Prior smoker. O2, incentive spirometry, nebs PRN. PULMONARY MASS 3 cm BETHANY density noted on chest x-ray. 8 mm groundglass nodule noted in RUL on CT. Chest x-ray at [facility] 05/26/16 did not demonstrate any apparent masses. Will need follow-up as clinically indicated. DEMENTIA Continue donepezil. Monitor for delirium. REMOTE HISTORY ALCOHOL ABUSE Continue thiamine. AAA 5.4 x 4.7 cm infrarenal AAA noted on CT. Will need follow-up as clinically indicated. Conservative management may be most appropriate given medical status. VTE PROPHYLAXIS SCD's. DISPOSITION Expected return to [facility]. Son Emiliano given update by phone. His cell # is [phone]. He is the closest family member, but not durable POA. Patient is legally , but spouse has not been involved with his care for some time. Son confirms DNR status. However, he indicates that short term aggressive measures such as bronchoscopy or intubation would be appropriate if necessary. . Current Inpatient Medications: Current Inpatient Medications Medications (Trade) Dose Ordered Sig/[place] Route Start Time Stop Time Status Last Admin Dose Admin Morphine Sulfate (MoRPHine SULFATE INJ) 2 mg Q2H PRN IV 03/11/17 14:15 03/25/17 14:14 03/12/17 06:06 2 MG Naloxone HCl (Narcan Inj) 0.1 mg PRN PRN IV 03/11/17 14:15 04/10/17 14:14 Senna/Docusate Sodium (Senokot S Tab) 2 tab HS PO 03/11/17 21:00 04/10/17 20:59 Polyethylene (Miralax Powder Packet) 17 gm DAILY PRN PO 03/11/17 14:15 04/10/17 14:14 Magnesium Hydroxide (Milk Of Magnesia Susp) 30 ml DAILY PRN PO 03/11/17 14:15 04/10/17 14:14 Bisacodyl (Dulcolax Supp) 10 mg DAILY PRN MN 03/11/17 14:15 04/10/17 14:14 Sodium Biphosphate/ Sodium Phosphate (Fleet Enema) 132 ml PRN PRN MN 03/11/17 14:15 Ascorbic Acid (Vitamin C Tab) 500 mg DAILY PO 03/12/17 09:00 04/11/17 08:59 03/13/17 07:45 500 MG Donepezil HCl (Aricept Tab) 5 mg DAILY PO 03/12/17 09:00 04/11/17 08:59 03/13/17 07:45 5 MG Folic Acid (Folvite Tab) 1 mg DAILY PO 03/12/17 09:00 04/11/17 08:59 03/13/17 07:45 1 MG Mirtazapine (Remeron Tab) 15 mg HS PO 03/11/17 21:00 04/10/17 20:59 03/13/17 21:14 15 MG Multivitamins (Multivitamin Tab) 1 tab DAILY PO 03/12/17 09:00 04/11/17 08:59 03/13/17 07:45 1 TAB Thiamine HCl (Vitamin B-1 Tab) 50 mg DAILY PO 03/12/17 09:00 04/11/17 08:59 03/13/17 07:45 50 MG Sodium Chloride 1,000 ml @ 0 mls/hr Q0M IV 03/12/17 15:42 04/11/17 15:41 Ondansetron HCl (Zofran Inj) 4 mg Q6H PRN IV 03/12/17 15:45 04/11/17 15:44 03/12/17 20:40 4 MG Oxycodone HCl (Roxicodone Immediate Rel Tab) 5 mg Q4H PRN PO 03/12/17 15:45 03/26/17 15:44 03/13/17 13:02 5 MG Oxycodone HCl (Roxicodone Immediate Rel Tab) 10 mg Q4H PRN PO 03/12/17 15:45 03/26/17 15:44 Aspirin/Aluminum/ Magnesium/Ca Carb (Ascriptin Tab) 325 mg BID PO 03/12/17 21:00 04/11/17 20:59 03/13/17 21:13 325 MG Morphine Sulfate (MoRPHine SULFATE INJ) 4 mg Q4 PRN IV 03/12/17 15:45 03/26/17 15:44 Naloxone HCl (Narcan Inj) 0.4 mg Q1M PRN IV 03/12/17 15:45 04/11/17 15:44 Senna/Docusate Sodium (Senokot S Tab) 2 tab HS PO 03/12/17 21:00 04/11/17 20:59 03/12/17 20:41 2 TAB Ipratropium [place] (Atrovent 0.02% 0.5MG/2.5ML Neb) 0.5 mg QIDR INH 03/13/17 20:00 04/12/17 19:59 03/14/17 08:03 0.5 MG Levalbuterol (Xopenex 1.25MG/ 0.5ML Neb) 1.25 mg QIDR INH 03/13/17 20:00 04/12/17 19:59 03/14/17 08:03 1.25 MG Levalbuterol (Xopenex 0.63 Mg/ 3 Ml Neb) 0.63 mg Q2H PRN INH 03/13/17 16:30 04/12/17 16:29 Ioversol (Optiray 320) 100 ml UD PRN IV 03/14/17 06:15 03/18/17 06:14
[2017-03-14] MEDS: DONEPEZIL HCL 5 MG TAB PO SCH (09:00)
[2017-03-14] MEDS ORDERED: HEPARIN SOD 5000 UNIT/0.5 ML CARP SQ ONE (09:13)
[2017-03-14] MEDS ORDERED: PIPERACILL/TAZOBAC IV 0 GM in DEXTROSE 5% 100ML 100 ML IV SCH (09:15)
[2017-03-14] MEDS ORDERED: THIAMINE HCL INJ 100 MG in SYRINGE 9 ML IV ONE (09:30)
[2017-03-14] MEDS ORDERED: METHYLPREDNISOLONE IV 80 MG in SYRINGE 0 ML IV ONE (09:30)
[2017-03-14] MEDS: MoRPHine SULFATE 4 MG/ML 1 ML CARP\\VIAL IV PRN ×2 (10:48→19:43)
[2017-03-14] MEDS ORDERED: PIPERACILL/TAZOBAC IV 3.375 GM in DEXTROSE 5% 100ML IV ONE (11:00)
[2017-03-14] MEDS ORDERED: PIPERACILL/TAZOBAC CONSULT ACTIVE PRN (11:15)
--- NOTE | 2017-03-14 13:06 | ECHOCARDIOGRAM REPORT ---
*NOTICE TO RECEIVING REPUBLICAN AGENCY This information is strictly Confidential and protected under [place] law. [place] law prohibits you from making any further disclosure of this information unless further disclosure is expressly permitted by the written consent of the person to whom it pertains or is authorized by law. A general authorization for the release of medical or other information is not sufficient for this purpose. Hospital accepts no responsibility if the information is made available to any other person, INCLUDING THE PATIENT. Interpretation Summary * Name: KARTHIKEYAN SALGADO Study Date: 03/14/2017 10:41 AM BP: 119/76 mmHg * Patient Location: [facility]\S\N388\S\1 HR: 90 * : 1945 (M/d/yyyy) Gender: Male Height: 72 in * Age: 71 yrs Ethnicity: DC Weight: 113 lb * Ordering Physician: Joo Kaur * Referring Physician: Presley Beal * Performed By: Aaliyah Reddy RDCS * * Reason For Study: CHF * BSA: 1.7 m2 * -- Conclusions -- * LIMITED IMAGES, ONLY WINDOW FLAT ON HIS BACK SUBCOSTAL, PATIENT UNCOOPERATIVE AND AGITATED * The left ventricle is not well visualized. * The left ventricle is normal in size. * There is mild concentric left ventricular hypertrophy. * The left ventricular ejection fraction is grossly normal. * No regional wall motion abnormalities noted. * The right ventricle is grossly normal size. * There is mild to moderate right ventricular hypertrophy. * Aortic valve sclerosis moderate, without significant aortic valvular stenosis. Procedure Details * A complete two-dimensional transthoracic echocardiogram was performed (2D, M-mode, Doppler and color flow Doppler). * LIMITED IMAGES, ONLY WINDOW FLAT ON HIS BACK SUBCOSTAL, PATIENT UNCOOPERATIVE AND AGITATED Left Ventricle * The left ventricle is not well visualized. * The left ventricle is normal in size. * There is mild concentric left ventricular hypertrophy. * The left ventricular ejection fraction is grossly normal. * Ejection Fraction = 55-60%. * No regional wall motion abnormalities noted. Right Ventricle * The right ventricle is grossly normal size. * There is mild to moderate right ventricular hypertrophy. Mitral Valve * The mitral valve is grossly normal. * There is no mitral valve stenosis. Tricuspid Valve * The tricuspid valve is not well visualized. Aortic Valve * Aortic valve sclerosis moderate, without significant aortic valvular stenosis. Pulmonic Valve * The pulmonic valve is not well visualized. Pericardium/Pleural * There is a trivial pericardial effusion MMode 2D Measurements and Calculations IVSd 0.83 cm IVSs 1.3 cm LVIDd 3.3 cm LVIDs 2.3 cm LVPWd 1.1 cm LVPWs 1.5 cm IVS/LVPW 0.75 FS 30.7 % EDV(Teich) 42.9 ml ESV(Teich) 17.4 ml EF(Teich) 59.5 % EDV(cubed) 34.7 ml ESV(cubed) 11.6 ml EF(cubed) 66.7 % % IVS thick 52.7 % % LVPW thick 39.6 % LV mass(C)d 88.8 grams LV mass(C)dI 53.2 grams/m\S\2 LV mass(C)s 100.0 grams LV mass(C)sI 59.8 grams/m\S\2 SV(Teich) 25.5 ml SI(Teich) 15.3 ml/m\S\2 SV(cubed) 23.1 ml SI(cubed) 13.8 ml/m\S\2 Ao root diam 2.5 cm Ao root area 5.0 cm\S\2 LVAd ap4 15.7 cm\S\2 LVLd ap4 6.4 cm EDV(MOD-sp4) 33.6 ml EDV(sp4-el) 33.1 ml LVAs ap4 9.2 cm\S\2 LVLs ap4 5.1 cm ESV(MOD-sp4) 14.0 ml ESV(sp4-el) 13.9 ml EF(MOD-sp4) 58.4 % EF(sp4-el) 58.0 % SV(MOD-sp4) 19.6 ml SI(MOD-sp4) 11.7 ml/m\S\2 SV(sp4-el) 19.2 ml SI(sp4-el) 11.5 ml/m\S\2 Doppler Measurements and Calculations TR max julieta 301.3 cm/sec
[2017-03-14 14:51] LABS: ALBUMIN 2.2 gm/dl (3.4-5.0); CALCIUM 8.3 mg/dl (8.5-10.1); CREATININE 0.98 mg/dl (0.60-1.40); POTASSIUM 3.4 mmol/L (3.5-5.1)
[2017-03-14 14:54] LABS: TOTAL PROTEIN 5.9 gm/dl (6.4-8.2)
[2017-03-14] MEDS: PIPERACILL/TAZOBAC IV 3.375 GM in DEXTROSE 5% 100ML IV SCH ×2 (16:00→23:30)
[2017-03-14] MEDS: D5W AND 1/2NSS + 40MEQ KCL 1,000 ML IV SCH (18:31)
[2017-03-14] MEDS: MIRTAZAPINE TAB 15 MG TAB PO SCH (19:42)
[2017-03-14] MEDS: HEPARIN SOD 5000 UNIT/0.5 ML CARP SQ SCH (19:52)
[2017-03-15] MEDS: IPRATROPIUM BROMIDE NEB SOLN 0.02% 2.5 ML VIAL INH SCH ×4 (07:10→19:22)
[2017-03-15] MEDS: LEVALBUTEROL 1.25MG/0.5ML NEB INH SCH ×4 (07:11→19:22)
--- NOTE | 2017-03-15 07:25 | DIAGNOSTIC IMAGING REPORT ---
CHEST ONE VIEW PORTABLE CLINICAL HISTORY: respiratory failure dyspnea COMPARISON STUDY: 03/14/2017 FINDINGS: Unchanging parenchymal infiltrate right hemithorax. Small parenchymal infiltrate left midlung also unchanged. Mild Baseline emphysematous change. Mild pulmonary hyperaeration. IMPRESSION: Bilateral parenchymal infiltrates unchanged from the prior study. The above report was generated using voice recognition software. It may contain grammatical, syntax or spelling errors. Electronically signed by: Peng Marc M.D. 03/15/2017 7:24 AM Dictated Date/Time: 03/15/2017 7:23 AM
--- NOTE | 2017-03-15 07:39 | Orthopedic Progress Note ---
Orthopedic Progress Note Date of Service Mar 15, 2017. Subjective Post OP Day: 3 Additional Notes: Pt lying in bed. When asking questions, he answers "leave me alone!". Will not answer other questions. Objective calves soft nontender, incision C/D/I, toes mobile Incision appears benign. Thigh with mild swelling but soft. Leg lengths appear wnl but pt will not cooperate fully to check. Date Time Temp Pulse Resp B/P (MAP) Pulse Ox O2 Delivery O2 Flow Rate FiO2 03/15/17 04:10 Nasal Cannula 4.0 03/15/17 00:41 Nasal Cannula 4.0 03/14/17 22:17 36.9 83 19 112/65 (81) 97 Nasal Cannula 4.0 03/14/17 21:00 83 24 97/56 (70) 97 Nasal Cannula 4.0 03/14/17 20:51 83 20 96 Nasal Cannula 4.0 03/14/17 20:00 Nasal Cannula 4.0 03/14/17 20:00 36.9 87 20 103/58 (73) 96 Nasal Cannula 4.0 03/14/17 19:05 81 23 115/62 (79) 97 Nasal Cannula 4.0 03/14/17 16:00 96 Nasal Cannula 4.0 03/14/17 16:00 37.2 85 23 106/64 (78) 97 Nasal Cannula 4.0 03/14/17 14:45 80 20 99 Nasal Cannula 40.0 80 03/14/17 14:00 82 23 100/62 (75) 97 High Flow Oxygen 60 03/14/17 12:00 37.2 85 23 102/63 (76) 97 High Flow Oxygen 80 03/14/17 11:11 88 20 98 Nasal Cannula 40.0 60 03/14/17 10:30 37.2 85 23 113/72 (86) 97 High Flow Oxygen 80 03/14/17 08:23 36.4 78 18 96 03/14/17 08:03 86 20 93 Nasal Cannula 40.0 95 03/14/17 08:01 High Flow Oxygen 03/14/17 07:57 36.4 78 18 119/76 (90) 96 High Flow Oxygen Laboratory Results 24 Hours: Test 03/15/17 04:44 Assessment & Plan Assessment: 71 y/o male POD#3 S/P left Bipolar Hemiarthroplasty. ACUTE HYPOXIC RESPIRATORY FAILURE LEFT FEMORAL NECK FRACTURE ORIF performed 03/12. POD # 3. PT / OT when medically stable. OSTEOPOROSIS COPD PULMONARY MASS 3 cm BETHANY density noted on chest x-ray. 8 mm groundglass nodule noted in RUL on CT. DEMENTIA REMOTE HISTORY ALCOHOL ABUSE AAA 5.4 x 4.7 cm infrarenal AAA noted on CT. Plan: Medical management PT/OT DVT prophylaxis - ASA Discharge - [facility] when medically stable. Ortho will sign off for now. Please call with any questions.
--- NOTE | 2017-03-15 07:42 | Consultant Recommendations ---
Customer Support Representative Recommendations Date of Service Mar 15, 2017. Customer Support Representative Recommendations ACTIVITY RECOMMENDATIONS: SELF CARE INSTRUCTIONS AFTER HIP HEMIARTHROPLASTY. Until the incision and soft tissues around your hip have healed, there is a possibility that the hip prosthesis could dislocate. A. Observe the following precautions to prevent dislocation: 1. Don't bend your hip greater than 90 degrees. 2. Avoid crossing your legs or ankles while standing or lying. 3. Sit with your feet placed 6 inches apart. 4. When sitting, keep your knees below your hips. Sit on a firm surface, avoid deep, soft chairs and couches. Use an elevated toilet seat in the bathroom. 5. Don't bend over at the waist. Use a long handled shoehorn and a sock aid to help you put on your shoes and socks. A dean of faculty can help you sweet pickle maker objects that are too high or too low to reach. 6. Keep car riding to a minimum for at least one month after surgery. B. Your balance may be shaky for a while. Use crutches or a walker until directed by your doctor. C. Use hand rails when walking on stairs. D. Wear low heeled shoes with non-slip soles. E. Be sure that your floors are free of things that could trip you - throw rugs , electrical cords, small objects. Avoid wet and waxed floors, especially with crutches and canes. F. Try to walk several times a day with rest periods between. G. Continue with all the exercises taught to you in the hospital. Again, make walking a part of your daily routine. SPECIAL CARE INSTRUCTIONS: VERY IMPORTANT TO READ AND REVIEW A. You may still be at risk for phlebitis and blood clots. 1. Wear surgical stockings (PATRICK hose) for 2 weeks after surgery to improve circulation and reduce swelling. 2. Take Aspirin EC 325mg twice daily for 4 weeks or as directed by your doctor. This is your blood thinner. 3. High risk patients may be prescribed a stronger blood thinner if necessary. 4. If you are on Coumadin normally, your family doctor/stone gluer should monitor your blood work. Expect a phone call the day of or the day after bloodwork is drawn to adjust your dosage. B. You must take antibiotics before having dental work, bladder, bowel and other surgery. Your doctor will provide you with a permanent card to carry describing precautions. C. Call [facility] if you have a fever, redness or swelling around the incision, cloudy drainage from incision, or sudden increase in pain in your hip, not relieved by your regular pain medication. D. Please call the office at if you have any concerns or questions about your operation or recovery. * YOU MAY SHOWER, NO TUB BATHS UNTIL CLEARED BY YOUR DOCTOR. * WEAR PATRICK HOSE 20 HOURS PER DAY FOR 2 WEEKS. * YOU SHOULD USE A WALKER OR CRUTCHES FOR 2-4 WEEKS. THIS WILL HELP PREVENT STRAIN ON YOUR HIP MUSCLE AND ALLOW IT TO HEAL PROPERLY. YOU MAY WEAN TO A CANE TOLERATED. * MOST PATIENTS WILL HAVE HOME NURSING FOR THERAPY. IF YOU DECIDE TO DO OUTPATIENT PHYSICAL THERAPY, PLEASE SCHEDULE THIS 3 TIMES PER WEEK. * DAILY DRESSING CHANGES. KEEP WOUND COVERED. . FOLLOW UP VISIT: If appointment is not already scheduled: Please call [facility] (DR MARTÍNEZ) to make a follow-up appointment for 2 weeks after your surgery at .
[2017-03-15] MEDS: HEPARIN SOD 5000 UNIT/0.5 ML CARP SQ SCH ×2 (07:48→20:50)
[2017-03-15] MEDS: DONEPEZIL HCL 5 MG TAB PO SCH (07:48)
--- NOTE | 2017-03-15 08:14 | Anesthesiology Progress Note ---
Anesthesia Post Op Note Date & Time Mar 15, 2017 at 08:13 Vital Signs Pain Intensity: 7.0 Vital Signs Past 12 Hours Date Time Temp Pulse Resp B/P (MAP) Pulse Ox O2 Delivery O2 Flow Rate FiO2 03/15/17 08:00 Nasal Cannula 4.0 03/15/17 04:10 Nasal Cannula 4.0 03/15/17 00:41 Nasal Cannula 4.0 03/14/17 22:17 36.9 83 19 112/65 (81) 97 Nasal Cannula 4.0 03/14/17 21:00 83 24 97/56 (70) 97 Nasal Cannula 4.0 03/14/17 20:51 83 20 96 Nasal Cannula 4.0 Notes Mental Status: alert / awake / arousable, participated in evaluation Pt Amnestic to Procedure: Yes Nausea / Vomiting: adequately controlled Pain: adequately controlled Airway Patency, RR, SpO2: stable & adequate BP & HR: stable & adequate Hydration State: stable & adequate Neuraxial Anesthesia: sensory block resolved Anesthetic Complications: no major complications apparent
[2017-03-15] MEDS: D5W AND 1/2NSS + 40MEQ KCL 1,000 ML IV SCH ×2 (08:22→20:49)
[2017-03-15] MEDS: PIPERACILL/TAZOBAC IV 3.375 GM in DEXTROSE 5% 100ML IV SCH ×3 (08:22→23:43)
[2017-03-15] MEDS: THIAMINE HCL INJ 100 MG in SYRINGE 9 ML IV SCH (08:22)
[2017-03-15 12:30] VITALS: PULSE 66; O2SAT 94
[2017-03-15 15:33] VITALS: BP 107/63; PULSE 73; TEMP 36.9; O2SAT 90
[2017-03-15 19:41] VITALS: BP 107/53; PULSE 69; TEMP 36.8; O2SAT 90
--- NOTE | 2017-03-15 20:16 | Progress Note ---
Medicine Progress Note Date & Time of Visit: Mar 15, 2017 at 20:16 . Subjective CC: Follow-up visit for hip fracture and other problems. HPI: Respiratory status improved. Not completely cooperative (apparently consistent with baseline). Refused labs and vital signs this morning. Would not permit examination this morning, but agreed to allow examination this evening. Denies chest pain, cough, SOB. Postop pain improved. ROS: General- no fever, no chills Resp- as noted above in HPI Cardiac- as noted above in HPI GI- no nausea, no vomiting, no diarrhea - has Glover cath . Objective Last 8 Hrs Date Time Temp Pulse Resp B/P (MAP) Pulse Ox O2 Delivery O2 Flow Rate FiO2 03/15/17 19:41 36.8 69 24 107/53 (71) 90 Nasal Cannula 2.0 03/15/17 16:00 Room Air 03/15/17 15:33 36.9 73 20 107/63 (78) 90 Room Air 03/15/17 12:30 66 18 94 Room Air Physical Exam: General- lying in bed, moderate distress Lungs- wheezing improved, no respiratory distress Cardiovascular- RRR, no gallop appreciated, no JVD, no pretibial edema Abd- + BS, soft, nontender Extr- no cyanosis, no calf tenderness; SCD's applied Neuro- confused Skin- warm and dry . Assessment & Plan ACUTE HYPOXIC RESPIRATORY FAILURE Worsening respiratory status postoperatively. PE ruled out by CTA. Contributing factors may have included: (1) pulmonary edema (interstitial prominence on CXR, elevated BNP) (2) possible pneumonia (3) exacerbation COPD Suspect that main problem was pulmonary edema, but best to treat for pneumonia as well. Started antibiotic therapy. MRSA nasal swab negative, no MRSA pneumonia unlikely. Best to avoid quinolones due to confusion. Rx with IV piperacillin / tazobactam pending culture results. Respiratory status improved. Check f/u chest x-ray tomorrow if patient allows. LEFT FEMORAL NECK FRACTURE ORIF performed 03/12. POD # 3. PT / OT when medically stable. OSTEOPOROSIS Vitamin D level = 19. Supplement. Follow. COPD Emphysematous changes noted on admission chest x-ray. Prior smoker. O2, incentive spirometry, nebs PRN. PULMONARY MASS 3 cm BETHANY density noted on chest x-ray. 8 mm groundglass nodule noted in RUL on CT. Chest x-ray at [facility] 05/26/16 did not demonstrate any apparent masses. Will need follow-up as clinically indicated. DEMENTIA Continue donepezil. Monitor for delirium. REMOTE HISTORY ALCOHOL ABUSE Continue thiamine. AAA 5.4 x 4.7 cm infrarenal AAA noted on CT. Will need follow-up as clinically indicated. Conservative management may be most appropriate given medical status. VTE PROPHYLAXIS SQ heparin and SCD's. Ambulate with assistance as tolerated. DISPOSITION Will need skilled care; specific plans to be determined. . Current Inpatient Medications: Current Inpatient Medications Medications (Trade) Dose Ordered Sig/[place] Route Start Time Stop Time Status Last Admin Dose Admin Morphine Sulfate (MoRPHine SULFATE INJ) 2 mg Q2H PRN IV 03/11/17 14:15 03/25/17 14:14 03/12/17 06:06 2 MG Naloxone HCl (Narcan Inj) 0.1 mg PRN PRN IV 03/11/17 14:15 04/10/17 14:14 Bisacodyl (Dulcolax Supp) 10 mg DAILY PRN DE 03/11/17 14:15 04/10/17 14:14 Donepezil HCl (Aricept Tab) 5 mg DAILY PO 03/12/17 09:00 04/11/17 08:59 03/13/17 07:45 5 MG Mirtazapine (Remeron Tab) 15 mg HS PO 03/11/17 21:00 04/10/17 20:59 03/14/17 19:42 15 MG Ondansetron HCl (Zofran Inj) 4 mg Q6H PRN IV 03/12/17 15:45 04/11/17 15:44 03/12/17 20:40 4 MG Morphine Sulfate (MoRPHine SULFATE INJ) 4 mg Q4 PRN IV 03/12/17 15:45 03/26/17 15:44 03/14/17 19:43 4 MG Naloxone HCl (Narcan Inj) 0.4 mg Q1M PRN IV 03/12/17 15:45 04/11/17 15:44 Ipratropium [place] (Atrovent 0.02% 0.5MG/2.5ML Neb) 0.5 mg QIDR INH 03/13/17 20:00 04/12/17 19:59 03/14/17 20:00 0.5 MG Levalbuterol (Xopenex 1.25MG/ 0.5ML Neb) 1.25 mg QIDR INH 03/13/17 20:00 04/12/17 19:59 03/14/17 20:00 1.25 MG Levalbuterol (Xopenex 0.63 Mg/ 3 Ml Neb) 0.63 mg Q2H PRN INH 03/13/17 16:30 04/12/17 16:29 Thiamine HCl 100 mg/Syringe 10 ml @ 2 mls/min QAM IV 03/15/17 09:00 04/14/17 08:59 03/15/17 08:22 2 MLS/MIN Heparin Sodium (Porcine) (Heparin Sq 5000 Unit/0.5ml) 5,000 unit Q12 SQ 03/14/17 21:00 04/13/17 20:59 Piperacillin Sod/ Tazobactam Sod 3.375 gm/Dextrose 115 ml @ 28.75 mls/ hr Q8H IV 03/14/17 16:00 03/21/17 15:59 03/15/17 15:46 28.75 MLS/HR Piperacillin Sod/ Tazobactam Sod (Consult) 1 ea UD PRN N/A 03/14/17 11:15 04/13/17 11:14 Potassium Chloride/Dextrose/ Sod Cl 1,000 ml @ 75 mls/hr [id number] IV 03/14/17 18:00 04/13/17 17:59 03/15/17 08:22 75 MLS/HR
[2017-03-15] MEDS: MIRTAZAPINE TAB 15 MG TAB PO SCH (20:49)
[2017-03-15 23:35] VITALS: BP 110/55; PULSE 67; TEMP 37.3; O2SAT 88
[2017-03-16] MEDS: PIPERACILL/TAZOBAC IV 3.375 GM in DEXTROSE 5% 100ML IV SCH ×2 (07:27→16:00)
[2017-03-16] MEDS: HEPARIN SOD 5000 UNIT/0.5 ML CARP SQ SCH ×3 (07:28→21:07)
[2017-03-16] MEDS: DONEPEZIL HCL 5 MG TAB PO SCH (07:28)
[2017-03-16] MEDS: THIAMINE HCL INJ 100 MG in SYRINGE 9 ML IV SCH (07:31)
[2017-03-16] MEDS: LEVALBUTEROL 1.25MG/0.5ML NEB INH SCH ×4 (07:54→19:48)
[2017-03-16] MEDS: IPRATROPIUM BROMIDE NEB SOLN 0.02% 2.5 ML VIAL INH SCH ×4 (07:54→19:48)
[2017-03-16] MEDS: D5W AND 1/2NSS + 40MEQ KCL 1,000 ML IV SCH (10:00)
--- NOTE | 2017-03-16 10:44 | DIAGNOSTIC IMAGING REPORT ---
CHEST ONE VIEW PORTABLE HISTORY: 71 years-old Male f/u resp failure acute respiratory failure. COMPARISON: Chest radiograph 03/15/2017, CTA chest 03/14/2017 TECHNIQUE: Portable AP view of the chest FINDINGS: Cardiac silhouette is within normal limits. Atherosclerosis of the aorta. Hyperinflation with severe emphysema and chronic scarring. Superimposed patchy alveolar opacities are again noted within the lung bases, right perihilar distribution and left midlung. There is slightly improved aeration of the medial right lung base. No pneumothorax or large pleural effusion. Bones appear grossly intact. IMPRESSION: Persistent patchy bilateral airspace opacities suggest ongoing pneumonia. Slightly improved aeration of the medial right lung base. The above report was generated using voice recognition software. It may contain grammatical, syntax or spelling errors. Electronically signed by: Ollie Cruz M.D. 03/16/2017 10:43 AM Dictated Date/Time: 03/16/2017 10:40 AM
[2017-03-16 11:01] VITALS: PULSE 60; O2SAT 86
[2017-03-16] MEDS: MoRPHine SULFATE 4 MG/ML 1 ML CARP\\VIAL IV PRN (14:01)
[2017-03-16 15:28] VITALS: BP 109/63; PULSE 59; TEMP 37.3; O2SAT 91
[2017-03-16 15:33] VITALS: PULSE 59; O2SAT 91
[2017-03-16 19:37] VITALS: BP 116/71; PULSE 58; TEMP 37.4; O2SAT 95
--- NOTE | 2017-03-16 20:03 | Progress Note ---
Medicine Progress Note Date & Time of Visit: Mar 16, 2017 at 20:03 . Subjective CC: Follow-up visit for hip fracture and other problems. HPI: Uncooperative much of the time- refused labs and vital signs. States that he is fine. Denies CP, cough, SOB. Fair PO intake. No N/V. Still has Glover catheter. Denies pain. ROS: as noted above in HPI . Objective Last 8 Hrs Date Time Temp Pulse Resp B/P (MAP) Pulse Ox O2 Delivery O2 Flow Rate FiO2 03/16/17 15:33 59 18 91 Room Air 03/16/17 15:28 37.3 59 20 109/63 (78) 91 Nasal Cannula 2.0 03/16/17 15:08 Room Air Physical Exam: General- lying in bed, no distress Lungs- mild wheezing, no respiratory distress Cardiovascular- RRR, no gallop appreciated, no JVD, no pretibial edema Abd- + BS, soft, nontender, pulsatile mass lower abdomen Extr- no cyanosis, no calf tenderness; SCD's applied Neuro- alert, confused Skin- warm and dry . Assessment & Plan LEFT FEMORAL NECK FRACTURE ORIF performed 03/12. POD # 4. PT / OT. OSTEOPOROSIS Vitamin D level = 19. Supplement. Follow. ACUTE HYPOXIC RESPIRATORY FAILURE Worsening respiratory status postoperatively. PE ruled out by CTA. Contributing factors may have included: (1) pulmonary edema (interstitial prominence on CXR, elevated BNP) (2) possible pneumonia (3) exacerbation COPD Suspect that main problem was pulmonary edema, but best to treat for pneumonia as well. Started antibiotic therapy. MRSA nasal swab negative, no MRSA pneumonia unlikely. Best to avoid quinolones due to confusion. Rx with IV piperacillin / tazobactam pending culture results. Respiratory status improved. COPD Emphysematous changes noted on admission chest x-ray. Prior smoker. O2, incentive spirometry, nebs PRN. PULMONARY MASS 3 cm BETHANY density noted on chest x-ray. 8 mm groundglass nodule noted in RUL on CT. Chest x-ray at [facility] 05/26/16 did not demonstrate any apparent masses. Will need follow-up as clinically indicated. DEMENTIA Continue donepezil. Monitor for delirium. REMOTE HISTORY ALCOHOL ABUSE Continue thiamine. AAA 5.4 x 4.7 cm infrarenal AAA noted on CT. Will need follow-up as clinically indicated. Conservative management may be most appropriate given medical status. VTE PROPHYLAXIS SQ heparin and SCD's. Ambulate with assistance as tolerated. DISPOSITION Will need skilled care; specific plans to be determined. . Current Inpatient Medications: Current Inpatient Medications Medications (Trade) Dose Ordered Sig/[place] Route Start Time Stop Time Status Last Admin Dose Admin Morphine Sulfate (MoRPHine SULFATE INJ) 2 mg Q2H PRN IV 03/11/17 14:15 03/25/17 14:14 03/12/17 06:06 2 MG Naloxone HCl (Narcan Inj) 0.1 mg PRN PRN IV 03/11/17 14:15 04/10/17 14:14 Bisacodyl (Dulcolax Supp) 10 mg DAILY PRN [place] 03/11/17 14:15 04/10/17 14:14 Donepezil HCl (Aricept Tab) 5 mg DAILY PO 03/12/17 09:00 04/11/17 08:59 03/13/17 07:45 5 MG Mirtazapine (Remeron Tab) 15 mg HS PO 03/11/17 21:00 04/10/17 20:59 03/14/17 19:42 15 MG Ondansetron HCl (Zofran Inj) 4 mg Q6H PRN IV 03/12/17 15:45 04/11/17 15:44 03/12/17 20:40 4 MG Morphine Sulfate (MoRPHine SULFATE INJ) 4 mg Q4 PRN IV 03/12/17 15:45 03/26/17 15:44 03/16/17 14:01 4 MG Naloxone HCl (Narcan Inj) 0.4 mg Q1M PRN IV 03/12/17 15:45 04/11/17 15:44 Ipratropium [place] (Atrovent 0.02% 0.5MG/2.5ML Neb) 0.5 mg QIDR INH 03/13/17 20:00 04/12/17 19:59 03/16/17 15:33 0.5 MG Levalbuterol (Xopenex 1.25MG/ 0.5ML Neb) 1.25 mg QIDR INH 03/13/17 20:00 04/12/17 19:59 03/16/17 15:33 1.25 MG Levalbuterol (Xopenex 0.63 Mg/ 3 Ml Neb) 0.63 mg Q2H PRN INH 03/13/17 16:30 04/12/17 16:29 Thiamine HCl 100 mg/Syringe 10 ml @ 2 mls/min QAM IV 03/15/17 09:00 04/14/17 08:59 03/16/17 07:31 2 MLS/MIN Heparin Sodium (Porcine) (Heparin Sq 5000 Unit/0.5ml) 5,000 unit Q12 SQ 03/14/17 21:00 04/13/17 20:59 Piperacillin Sod/ Tazobactam Sod 3.375 gm/Dextrose 115 ml @ 28.75 mls/ hr Q8H IV 03/14/17 16:00 03/21/17 15:59 03/16/17 16:00 28.75 MLS/HR Piperacillin Sod/ Tazobactam Sod (Consult) 1 ea UD PRN N/A 03/14/17 11:15 04/13/17 11:14 Potassium Chloride/Dextrose/ Sod Cl 1,000 ml @ 75 mls/hr [id number] IV 03/14/17 18:00 04/13/17 17:59 03/16/17 10:00 75 MLS/HR
[2017-03-16] MEDS: MIRTAZAPINE TAB 15 MG TAB PO SCH (21:04)
[2017-03-16 23:38] VITALS: BP 129/75; PULSE 57; TEMP 37.1; O2SAT 98
[2017-03-17] VITALS (9 sets, daily range): BP systolic 117–133; BP diastolic 61–87; PULSE 62–80; TEMP 36.4–37.4; O2SAT 91–97
[2017-03-17] MEDS: D5W AND 1/2NSS + 40MEQ KCL 1,000 ML IV SCH ×2 (00:14→12:55)
[2017-03-17] MEDS: PIPERACILL/TAZOBAC IV 3.375 GM in DEXTROSE 5% 100ML IV SCH ×3 (00:14→16:21)
[2017-03-17] MEDS: LEVALBUTEROL 1.25MG/0.5ML NEB INH SCH ×4 (07:45→19:20)
[2017-03-17] MEDS: IPRATROPIUM BROMIDE NEB SOLN 0.02% 2.5 ML VIAL INH SCH ×4 (07:45→19:20)
[2017-03-17] MEDS: HEPARIN SOD 5000 UNIT/0.5 ML CARP SQ SCH ×2 (08:06→20:51)
[2017-03-17] MEDS: DONEPEZIL HCL 5 MG TAB PO SCH (08:06)
[2017-03-17] MEDS: THIAMINE HCL INJ 100 MG in SYRINGE 9 ML IV SCH (08:27)
[2017-03-17] MEDS: MoRPHine SULFATE 4 MG/ML 1 ML CARP\\VIAL IV PRN (08:59)
[2017-03-17] MEDS: BOOST PLUS VANILLA PO SCH (16:45)
[2017-03-17] MEDS: ONDANSETRON INJ 2 MG/ML 2 ML VIAL IV PRN (19:07)
--- NOTE | 2017-03-17 19:33 | Progress Note ---
Medicine Progress Note Date & Time of Visit: Mar 17, 2017 at 19:20 . Subjective CC: Follow-up visit for hip fracture and other problems. HPI: Sometimes cooperative, sometimes not. Refused morning labs. Left hip pain improved. Denies cough or SOB. Still has Glover cath. ROS: General- no fever, no chills Resp- as noted above in HPI Cardiac- no chest pain, no edema GI- no nausea, no vomiting, no diarrhea, no constipation - as noted above in HPI . Objective Last 8 Hrs Date Time Temp Pulse Resp B/P (MAP) Pulse Ox O2 Delivery O2 Flow Rate FiO2 03/17/17 16:22 36.5 80 18 130/87 (101) 91 Nasal Cannula 2.0 03/17/17 16:00 97 Room Air 03/17/17 12:00 97 Nasal Cannula 2.0 03/17/17 11:41 36.4 65 16 117/75 (89) 96 Nasal Cannula 2.0 Physical Exam: General- lying in bed, no distress Lungs- mild wheezing, no respiratory distress Cardiovascular- RRR, no gallop appreciated, no JVD, no pretibial edema Abd- + BS, soft, nontender, pulsatile mass lower abdomen Extr- no cyanosis, no calf tenderness Neuro- alert, confused Skin- warm and dry . Assessment & Plan LEFT FEMORAL NECK FRACTURE ORIF performed 03/12. POD # 5. PT / OT. OSTEOPOROSIS Vitamin D level = 19. Supplement. Follow. ACUTE HYPOXIC RESPIRATORY FAILURE Worsening respiratory status postoperatively. PE ruled out by CTA. Contributing factors may have included: (1) pulmonary edema (interstitial prominence on CXR, elevated BNP) (2) possible pneumonia (3) exacerbation COPD Suspect that main problem was pulmonary edema, but best to treat for pneumonia as well. Started antibiotic therapy. MRSA nasal swab negative, no MRSA pneumonia unlikely. Best to avoid quinolones due to confusion. Treated with IV piperacillin / tazobactam pending culture results. Respiratory status improved. COPD Emphysematous changes noted on admission chest x-ray. Prior smoker. O2, incentive spirometry, nebs PRN. PULMONARY MASS 3 cm BETHANY density noted on chest x-ray. 8 mm groundglass nodule noted in RUL on CT. Chest x-ray at [facility] 05/26/16 did not demonstrate any apparent masses. Will need follow-up as clinically indicated. DEMENTIA Continue donepezil. Monitor for delirium. REMOTE HISTORY ALCOHOL ABUSE Continue thiamine. AAA 5.4 x 4.7 cm infrarenal AAA noted on CT. Will need follow-up as clinically indicated. Conservative management may be most appropriate given medical status. VTE PROPHYLAXIS SQ heparin and SCD's. Ambulate with assistance as tolerated. DISPOSITION Will need skilled care; specific plans to be determined. . Current Inpatient Medications: Current Inpatient Medications Medications (Trade) Dose Ordered Sig/[place] Route Start Time Stop Time Status Last Admin Dose Admin Morphine Sulfate (MoRPHine SULFATE INJ) 2 mg Q2H PRN IV 03/11/17 14:15 03/25/17 14:14 03/12/17 06:06 2 MG Naloxone HCl (Narcan Inj) 0.1 mg PRN PRN IV 03/11/17 14:15 04/10/17 14:14 Bisacodyl (Dulcolax Supp) 10 mg DAILY PRN [place] 03/11/17 14:15 04/10/17 14:14 Donepezil HCl (Aricept Tab) 5 mg DAILY PO 03/12/17 09:00 04/11/17 08:59 03/13/17 07:45 5 MG Mirtazapine (Remeron Tab) 15 mg HS PO 03/11/17 21:00 04/10/17 20:59 03/16/17 21:04 15 MG Ondansetron HCl (Zofran Inj) 4 mg Q6H PRN IV 03/12/17 15:45 04/11/17 15:44 03/17/17 19:07 4 MG Morphine Sulfate (MoRPHine SULFATE INJ) 4 mg Q4 PRN IV 03/12/17 15:45 03/26/17 15:44 03/17/17 08:59 4 MG Naloxone HCl (Narcan Inj) 0.4 mg Q1M PRN IV 03/12/17 15:45 04/11/17 15:44 Ipratropium [place] (Atrovent 0.02% 0.5MG/2.5ML Neb) 0.5 mg QIDR INH 03/13/17 20:00 04/12/17 19:59 03/16/17 15:33 0.5 MG Levalbuterol (Xopenex 1.25MG/ 0.5ML Neb) 1.25 mg QIDR INH 03/13/17 20:00 04/12/17 19:59 03/16/17 15:33 1.25 MG Levalbuterol (Xopenex 0.63 Mg/ 3 Ml Neb) 0.63 mg Q2H PRN INH 03/13/17 16:30 04/12/17 16:29 Thiamine HCl 100 mg/Syringe 10 ml @ 2 mls/min QAM IV 03/15/17 09:00 04/14/17 08:59 03/17/17 08:27 2 MLS/MIN Heparin Sodium (Porcine) (Heparin Sq 5000 Unit/0.5ml) 5,000 unit Q12 SQ 03/14/17 21:00 04/13/17 20:59 Piperacillin Sod/ Tazobactam Sod 3.375 gm/Dextrose 115 ml @ 28.75 mls/ hr Q8H IV 03/14/17 16:00 03/21/17 15:59 03/17/17 16:21 28.75 MLS/HR Piperacillin Sod/ Tazobactam Sod (Consult) 1 ea UD PRN N/A 03/14/17 11:15 04/13/17 11:14 Potassium Chloride/Dextrose/ Sod Cl 1,000 ml @ 75 mls/hr [id number] IV 03/14/17 18:00 04/13/17 17:59 03/17/17 12:55 75 MLS/HR Enteral Nutritional Formula (Boost Plus Vanilla) 1 can BIDM PO 03/17/17 16:45 04/16/17 16:44
[2017-03-17] MEDS: MIRTAZAPINE TAB 15 MG TAB PO SCH (20:51)
[2017-03-18] MEDS ORDERED: ACETAMINOPHEN 500 MG TAB PO PRN (04:15)
[2017-03-18] MEDS: LEVALBUTEROL 1.25MG/0.5ML NEB INH SCH ×2 (07:15→12:00)
[2017-03-18] MEDS: IPRATROPIUM BROMIDE NEB SOLN 0.02% 2.5 ML VIAL INH SCH ×2 (07:15→12:00)
[2017-03-18] MEDS: PIPERACILL/TAZOBAC IV 3.375 GM in DEXTROSE 5% 100ML IV SCH ×4 (08:00→16:00)
[2017-03-18 08:26] VITALS: BP 111/70; PULSE 87
[2017-03-18] MEDS: BOOST PLUS VANILLA PO SCH ×2 (08:30→17:45)
[2017-03-18] MEDS: HEPARIN SOD 5000 UNIT/0.5 ML CARP SQ SCH ×2 (08:53→21:00)
[2017-03-18] MEDS: DONEPEZIL HCL 5 MG TAB PO SCH (08:53)
[2017-03-18] MEDS ORDERED: LEVALBUTEROL 1.25MG/0.5ML NEB INH SCH (13:00)
[2017-03-18] MEDS ORDERED: LEVALBUTEROL 1.25MG/0.5ML NEB INH PRN (13:00)
[2017-03-18] MEDS ORDERED: IPRATROPIUM BROMIDE NEB SOLN 0.02% 2.5 ML VIAL INH PRN (13:00)
[2017-03-18] MEDS ORDERED: IPRATROPIUM BROMIDE NEB SOLN 0.02% 2.5 ML VIAL INH SCH (13:00)
[2017-03-18 15:44] VITALS: BP 102/62; PULSE 80; TEMP 37.7; O2SAT 90
--- NOTE | 2017-03-18 19:58 | Progress Note ---
Medicine Progress Note Date & Time of Visit: Mar 18, 2017 at 19:00 . Subjective CC: Follow-up visit for hip fracture and other problems. HPI: Left hip pain improved. Denies cough or SOB. ROS: General- no fever, no chills Resp- as noted above in HPI Cardiac- no chest pain, no edema GI- loose stools; no nausea, no vomiting - Glover removed; voiding without difficulty . Objective Last 8 Hrs Date Time Temp Pulse Resp B/P (MAP) Pulse Ox O2 Delivery O2 Flow Rate FiO2 03/18/17 16:25 Room Air 03/18/17 15:44 37.7 80 18 102/62 (75) 90 Room Air Physical Exam: General- lying in bed, no distress Lungs- mild wheezing, no respiratory distress Cardiovascular- RRR, no gallop appreciated, no JVD, no pretibial edema Abdomen- + BS, soft, nontender, pulsatile mass lower abdomen Extremities- no cyanosis, no calf tenderness; left hip incision without erythema or drainage Neuro- alert, confused Skin- warm and dry . Laboratory Results: Date/Time Source Procedure Growth Status 03/17/17 20:50 Stool C.difficile Toxin B Gene (PCR) - Final No C. difficile toxin B gene detected Complete Assessment & Plan LEFT FEMORAL NECK FRACTURE ORIF performed 03/12. POD # 6. PT / OT. OSTEOPOROSIS Vitamin D level = 19. Supplement. Follow. ACUTE HYPOXIC RESPIRATORY FAILURE Worsening respiratory status postoperatively. PE ruled out by CTA. Contributing factors may have included: (1) pulmonary edema (interstitial prominence on CXR, elevated BNP) (2) possible pneumonia (3) exacerbation COPD Suspect that main problem was pulmonary edema, but best to treat for pneumonia as well. Started antibiotic therapy. MRSA nasal swab negative, no MRSA pneumonia unlikely. Best to avoid quinolones due to confusion. Treated with IV piperacillin / tazobactam pending culture results. Respiratory status improved. COPD Emphysematous changes noted on admission chest x-ray. Prior smoker. O2, incentive spirometry, nebs PRN. PULMONARY MASS 3 cm BETHANY density noted on chest x-ray. 8 mm groundglass nodule noted in RUL on CT. Chest x-ray at [facility] 05/26/16 did not demonstrate any apparent masses. Will need follow-up as clinically indicated. DEMENTIA Continue donepezil. Monitor for delirium. REMOTE HISTORY ALCOHOL ABUSE Continue thiamine. AAA 5.4 x 4.7 cm infrarenal AAA noted on CT. Will need follow-up as clinically indicated. Conservative management may be most appropriate given medical status. VTE PROPHYLAXIS SQ heparin and SCD's. Ambulate with assistance as tolerated. DISPOSITION Will need skilled care; specific plans to be determined. . Current Inpatient Medications: Current Inpatient Medications Medications (Trade) Dose Ordered Sig/[place] Route Start Time Stop Time Status Last Admin Dose Admin Naloxone HCl (Narcan Inj) 0.1 mg PRN PRN IV 03/11/17 14:15 04/10/17 14:14 Bisacodyl (Dulcolax Supp) 10 mg DAILY PRN [place] 03/11/17 14:15 04/10/17 14:14 Donepezil HCl (Aricept Tab) 5 mg DAILY PO 03/12/17 09:00 04/11/17 08:59 03/13/17 07:45 5 MG Mirtazapine (Remeron Tab) 15 mg HS PO 03/11/17 21:00 04/10/17 20:59 03/16/17 21:04 15 MG Ondansetron HCl (Zofran Inj) 4 mg Q6H PRN IV 03/12/17 15:45 04/11/17 15:44 03/17/17 19:07 4 MG Naloxone HCl (Narcan Inj) 0.4 mg Q1M PRN IV 03/12/17 15:45 04/11/17 15:44 Levalbuterol (Xopenex 0.63 Mg/ 3 Ml Neb) 0.63 mg Q2H PRN INH 03/13/17 16:30 04/12/17 16:29 Heparin Sodium (Porcine) (Heparin Sq 5000 Unit/0.5ml) 5,000 unit Q12 SQ 03/14/17 21:00 04/13/17 20:59 Piperacillin Sod/ Tazobactam Sod 3.375 gm/Dextrose 115 ml @ 28.75 mls/ hr Q8H IV 03/14/17 16:00 03/21/17 15:59 03/17/17 16:21 28.75 MLS/HR Piperacillin Sod/ Tazobactam Sod (Consult) 1 ea UD PRN N/A 03/14/17 11:15 04/13/17 11:14 Enteral Nutritional Formula (Boost Plus Vanilla) 1 can BIDM PO 03/17/17 16:45 04/16/17 16:44 Acetaminophen (Tylenol Tab) 500 mg Q4H PRN PO 03/18/17 04:15 04/17/17 04:14 Levalbuterol (Xopenex 1.25MG/ 0.5ML Neb) 1.25 mg QIDR PRN INH 03/18/17 13:00 04/12/17 19:59 Ipratropium [place] (Atrovent 0.02% 0.5MG/2.5ML Neb) 0.5 mg QIDR PRN INH 03/18/17 13:00 04/12/17 19:59
[2017-03-18] MEDS: MIRTAZAPINE TAB 15 MG TAB PO SCH (21:00)
[2017-03-19 00:15] VITALS: BP 122/83; PULSE 86; TEMP 37.6
[2017-03-19] MEDS ORDERED: ALBUTEROL HFA 8 GM INHALER INH PRN (03:45)
[2017-03-19 08:03] VITALS: BP 128/75; PULSE 73; TEMP 36.7; O2SAT 93
[2017-03-19] MEDS: BOOST PLUS VANILLA PO SCH ×2 (08:30→17:38)
[2017-03-19] MEDS: AMOXICILLIN/CLAVULANATE TAB 875 MG TAB PO SCH ×2 (08:30→15:45)
[2017-03-19] MEDS: IPRATROPIUM BROMIDE/ALBUTEROL respimat INH INH SCH ×4 (09:00→20:35)
[2017-03-19] MEDS: HEPARIN SOD 5000 UNIT/0.5 ML CARP SQ SCH ×2 (09:00→20:35)
[2017-03-19] MEDS: FLUTICASONE/SALMETEROL 250/50 (ADVAIR) 14 PUFF/1 INHALER INH SCH ×2 (09:00→20:35)
[2017-03-19] MEDS: DONEPEZIL HCL 5 MG TAB PO SCH (09:00)
[2017-03-19 15:18] VITALS: BP 143/75; PULSE 76; TEMP 37.3; O2SAT 93
[2017-03-19] MEDS ORDERED: OXYCODONE HCL IR 5 MG TAB (IMMEDIATE RELEASE) PO ONE (16:00)
[2017-03-19] MEDS: MIRTAZAPINE TAB 15 MG TAB PO SCH (20:35)
--- NOTE | 2017-03-19 21:05 | Progress Note ---
Medicine Progress Note Date & Time of Visit: Mar 19, 2017 at 16:50 . Subjective CC: Follow-up visit for hip fracture and other problems. HPI: Had some left hip pain this afternoon, relieved by oxycodone. Denies cough or SOB. ROS: General- no fever, no chills Resp- as noted above in HPI Cardiac- no chest pain, no edema GI- loose stools; no nausea, no vomiting - Glover removed; voiding without difficulty . Objective Last 8 Hrs Date Time Temp Pulse Resp B/P (MAP) Pulse Ox O2 Delivery O2 Flow Rate FiO2 03/19/17 16:30 Room Air 03/19/17 15:18 37.3 76 20 143/75 (97) 93 Room Air Physical Exam: General- lying in bed, no distress Lungs- mild wheezing, no respiratory distress Cardiovascular- RRR, no gallop appreciated, no JVD, no pretibial edema Abdomen- + BS, soft, nontender, pulsatile mass lower abdomen Extremities- no cyanosis, no calf tenderness; left hip incision without erythema or drainage Neuro- alert, cooperative, confused Skin- warm and dry . Assessment & Plan LEFT FEMORAL NECK FRACTURE ORIF performed 03/12. POD # 7. PT / OT. OSTEOPOROSIS Vitamin D level = 19. Supplement. Follow. ACUTE HYPOXIC RESPIRATORY FAILURE Worsening respiratory status postoperatively. PE ruled out by CTA. Contributing factors may have included: (1) pulmonary edema (interstitial prominence on CXR, elevated BNP) (2) possible pneumonia (3) exacerbation COPD Suspect that main problem was pulmonary edema, but best to treat for pneumonia as well. Started antibiotic therapy. MRSA nasal swab negative, no MRSA pneumonia unlikely. Best to avoid quinolones due to confusion. Treated with IV piperacillin / tazobactam with improvement. Transitioned to oral therapy with amoxicillin / sulbactam. Today is day # 6 of antibiotic therapy; will continue for 1 more day to complete 7 day course. COPD Emphysematous changes noted on admission chest x-ray. Prior smoker. O2, incentive spirometry, nebs PRN. PULMONARY MASS 3 cm BETHANY density noted on chest x-ray. 8 mm groundglass nodule noted in RUL on CT. Chest x-ray at [facility] 05/26/16 did not demonstrate any apparent masses. Will need follow-up as clinically indicated. DEMENTIA Continue donepezil. Monitor for delirium. REMOTE HISTORY ALCOHOL ABUSE Continue thiamine. AAA 5.4 x 4.7 cm infrarenal AAA noted on CT. Will need follow-up as clinically indicated. Conservative management may be most appropriate given medical status. VTE PROPHYLAXIS SQ heparin and SCD's. Ambulate with assistance as tolerated. DISPOSITION Will need skilled care; specific plans to be determined. . Current Inpatient Medications: Current Inpatient Medications Medications (Trade) Dose Ordered Sig/[place] Route Start Time Stop Time Status Last Admin Dose Admin Naloxone HCl (Narcan Inj) 0.1 mg PRN PRN IV 03/11/17 14:15 04/10/17 14:14 Bisacodyl (Dulcolax Supp) 10 mg DAILY PRN [place] 03/11/17 14:15 04/10/17 14:14 Donepezil HCl (Aricept Tab) 5 mg DAILY PO 03/12/17 09:00 04/11/17 08:59 03/13/17 07:45 5 MG Mirtazapine (Remeron Tab) 15 mg HS PO 03/11/17 21:00 04/10/17 20:59 03/16/17 21:04 15 MG Ondansetron HCl (Zofran Inj) 4 mg Q6H PRN IV 03/12/17 15:45 04/11/17 15:44 03/17/17 19:07 4 MG Naloxone HCl (Narcan Inj) 0.4 mg Q1M PRN IV 03/12/17 15:45 04/11/17 15:44 Levalbuterol (Xopenex 0.63 Mg/ 3 Ml Neb) 0.63 mg Q2H PRN INH 03/13/17 16:30 04/12/17 16:29 Heparin Sodium (Porcine) (Heparin Sq 5000 Unit/0.5ml) 5,000 unit Q12 SQ 03/14/17 21:00 04/13/17 20:59 Enteral Nutritional Formula (Boost Plus Vanilla) 1 can BIDM PO 03/17/17 16:45 04/16/17 16:44 03/19/17 17:38 1 CAN Acetaminophen (Tylenol Tab) 500 mg Q4H PRN PO 03/18/17 04:15 04/17/17 04:14 03/19/17 14:49 500 MG Levalbuterol (Xopenex 1.25MG/ 0.5ML Neb) 1.25 mg QIDR PRN INH 03/18/17 13:00 04/12/17 19:59 Ipratropium [place] (Atrovent 0.02% 0.5MG/2.5ML Neb) 0.5 mg QIDR PRN INH 03/18/17 13:00 04/12/17 19:59 Amoxicillin/ Clavulanate Potassium (Augmentin Tab) 875 mg BIDM PO 03/19/17 08:30 03/26/17 08:29 03/19/17 15:45 875 MG Salmeterol Xinafoate/ Fluticasone (Advair Diskus 250/50 Inh) 1 puff BID INH 03/19/17 09:00 04/18/17 08:59 Albuterol/ Ipratropium (Combivent Respimat Inh) 1 puffs QID INH 03/19/17 09:00 04/18/17 08:59 03/19/17 17:38 1 PUFFS Albuterol (Ventolin Hfa Inhaler) 2 puffs Q6 PRN INH 03/19/17 03:45 04/18/17 03:44 Oxycodone HCl (Roxicodone Immediate Rel Tab) 5 mg Q6H PRN PO 03/19/17 15:45 04/02/17 15:44
[2017-03-19 22:50] VITALS: BP 94/44; PULSE 81; TEMP 37.1; O2SAT 93
[2017-03-19 23:20] VITALS: O2SAT 93
[2017-03-20 08:24] VITALS: BP 110/61; PULSE 65; TEMP 37.1
[2017-03-20] MEDS: AMOXICILLIN/CLAVULANATE TAB 875 MG TAB PO SCH ×2 (09:25→18:51)
[2017-03-20] MEDS: BOOST PLUS VANILLA PO SCH ×2 (09:25→18:51)
[2017-03-20] MEDS: OXYCODONE HCL IR 5 MG TAB (IMMEDIATE RELEASE) PO PRN ×2 (09:25→15:37)
[2017-03-20] MEDS: IPRATROPIUM BROMIDE/ALBUTEROL respimat INH INH SCH ×4 (09:26→21:43)
[2017-03-20] MEDS: FLUTICASONE/SALMETEROL 250/50 (ADVAIR) 14 PUFF/1 INHALER INH SCH ×2 (09:26→21:43)
[2017-03-20] MEDS: DONEPEZIL HCL 5 MG TAB PO SCH (09:27)
[2017-03-20] MEDS: ONDANSETRON INJ 2 MG/ML 2 ML VIAL IV PRN (09:35)
[2017-03-20] MEDS: HEPARIN SOD 5000 UNIT/0.5 ML CARP SQ SCH ×2 (09:35→21:43)
[2017-03-20 15:04] VITALS: BP 118/63; PULSE 90; TEMP 37.5; O2SAT 92
--- NOTE | 2017-03-20 19:06 | Progress Note ---
Medicine Progress Note Date & Time of Visit: Mar 20, 2017 at 11:10 . Subjective CC: Follow-up visit for hip fracture and other problems. HPI: Pleasantly confused, but doesn't want to be bothered too much. Denies cough or SOB. Less hip pain. ROS: General- no fever, no chills Resp- as noted above in HPI Cardiac- no chest pain, no edema GI- loose stools improved - voiding without difficulty . Objective Last 8 Hrs Date Time Temp Pulse Resp B/P (MAP) Pulse Ox O2 Delivery O2 Flow Rate FiO2 03/20/17 15:04 37.5 90 16 118/63 (81) 92 Room Air Physical Exam: General- lying in bed, no distress Lungs- mild wheezing, no respiratory distress Cardiovascular- RRR, no gallop appreciated, no JVD, no pretibial edema Abdomen- + BS, soft, nontender, pulsatile mass lower abdomen Extremities- no cyanosis, no calf tenderness; left hip incision without erythema or drainage Neuro- alert, cooperative, confused Skin- warm and dry . Assessment & Plan LEFT FEMORAL NECK FRACTURE ORIF performed 03/12. POD # 8. PT / OT. OSTEOPOROSIS Vitamin D level = 19. Supplement. Follow. ACUTE HYPOXIC RESPIRATORY FAILURE Worsening respiratory status postoperatively. PE ruled out by CTA. Contributing factors may have included: (1) pulmonary edema (interstitial prominence on CXR, elevated BNP) (2) possible pneumonia (3) exacerbation COPD Suspect that main problem was pulmonary edema, but best to treat for pneumonia as well. Started antibiotic therapy. MRSA nasal swab negative, no MRSA pneumonia unlikely. Best to avoid quinolones due to confusion. Treated with IV piperacillin / tazobactam with improvement. Transitioned to oral therapy with amoxicillin / sulbactam. Today is day # 7 of antibiotic therapy- should be sufficient course of therapy, will stop amoxicillin / sulbactam. COPD Emphysematous changes noted on admission chest x-ray. Prior smoker. O2, incentive spirometry, nebs PRN. PULMONARY MASS 3 cm BETHANY density noted on chest x-ray. 8 mm groundglass nodule noted in RUL on CT. Chest x-ray at [facility] 05/26/16 did not demonstrate any apparent masses. Will need follow-up as clinically indicated. DEMENTIA Continue donepezil. Monitor for delirium. REMOTE HISTORY ALCOHOL ABUSE Continue thiamine. AAA 5.4 x 4.7 cm infrarenal AAA noted on CT. Will need follow-up as clinically indicated. Conservative management may be most appropriate given medical status. VTE PROPHYLAXIS SQ heparin and SCD's. Ambulate with assistance as tolerated. DISPOSITION Will need skilled care; specific plans to be determined. . Current Inpatient Medications: Current Inpatient Medications Medications (Trade) Dose Ordered Sig/[place] Route Start Time Stop Time Status Last Admin Dose Admin Naloxone HCl (Narcan Inj) 0.1 mg PRN PRN IV 03/11/17 14:15 04/10/17 14:14 Bisacodyl (Dulcolax Supp) 10 mg DAILY PRN [place] 03/11/17 14:15 04/10/17 14:14 Donepezil HCl (Aricept Tab) 5 mg DAILY PO 03/12/17 09:00 04/11/17 08:59 03/20/17 09:27 5 MG Mirtazapine (Remeron Tab) 15 mg HS PO 03/11/17 21:00 04/10/17 20:59 03/16/17 21:04 15 MG Ondansetron HCl (Zofran Inj) 4 mg Q6H PRN IV 03/12/17 15:45 04/11/17 15:44 03/20/17 09:35 4 MG Naloxone HCl (Narcan Inj) 0.4 mg Q1M PRN IV 03/12/17 15:45 04/11/17 15:44 Levalbuterol (Xopenex 0.63 Mg/ 3 Ml Neb) 0.63 mg Q2H PRN INH 03/13/17 16:30 04/12/17 16:29 Heparin Sodium (Porcine) (Heparin Sq 5000 Unit/0.5ml) 5,000 unit Q12 SQ 03/14/17 21:00 04/13/17 20:59 Enteral Nutritional Formula (Boost Plus Vanilla) 1 can BIDM PO 03/17/17 16:45 04/16/17 16:44 03/20/17 09:25 1 CAN Acetaminophen (Tylenol Tab) 500 mg Q4H PRN PO 03/18/17 04:15 04/17/17 04:14 03/19/17 14:49 500 MG Levalbuterol (Xopenex 1.25MG/ 0.5ML Neb) 1.25 mg QIDR PRN INH 03/18/17 13:00 04/12/17 19:59 Ipratropium [place] (Atrovent 0.02% 0.5MG/2.5ML Neb) 0.5 mg QIDR PRN INH 03/18/17 13:00 04/12/17 19:59 Amoxicillin/ Clavulanate Potassium (Augmentin Tab) 875 mg BIDM PO 03/19/17 08:30 03/26/17 08:29 03/20/17 09:25 875 MG Salmeterol Xinafoate/ Fluticasone (Advair Diskus 250/50 Inh) 1 puff BID INH 03/19/17 09:00 04/18/17 08:59 03/20/17 09:26 1 PUFF Albuterol/ Ipratropium (Combivent Respimat Inh) 1 puffs QID INH 03/19/17 09:00 04/18/17 08:59 03/20/17 14:07 1 PUFFS Albuterol (Ventolin Hfa Inhaler) 2 puffs Q6 PRN INH 03/19/17 03:45 04/18/17 03:44 Oxycodone HCl (Roxicodone Immediate Rel Tab) 5 mg Q6H PRN PO 03/19/17 15:45 04/02/17 15:44 03/20/17 15:37 5 MG
[2017-03-20] MEDS: MIRTAZAPINE TAB 15 MG TAB PO SCH (21:43)
[2017-03-21] MEDS: HEPARIN SOD 5000 UNIT/0.5 ML CARP SQ SCH ×2 (08:53→21:39)
[2017-03-21 09:00] VITALS: O2SAT 95
[2017-03-21 09:10] VITALS: BP 147/84; PULSE 110; TEMP 36.8; O2SAT 95
[2017-03-21] MEDS: BOOST PLUS VANILLA PO SCH ×2 (09:11→17:45)
[2017-03-21] MEDS: IPRATROPIUM BROMIDE/ALBUTEROL respimat INH INH SCH ×4 (09:12→21:27)
[2017-03-21] MEDS: FLUTICASONE/SALMETEROL 250/50 (ADVAIR) 14 PUFF/1 INHALER INH SCH ×2 (09:12→21:27)
[2017-03-21] MEDS: DONEPEZIL HCL 5 MG TAB PO SCH (09:13)
[2017-03-21] MEDS: AMOXICILLIN/CLAVULANATE TAB 875 MG TAB PO SCH ×2 (09:13→21:27)
[2017-03-21 09:20] VITALS: PULSE 98
[2017-03-21 15:30] VITALS: BP 114/71; PULSE 99; TEMP 37.7; O2SAT 92
--- NOTE | 2017-03-21 21:05 | Progress Note ---
Medicine Progress Note Date & Time of Visit: Mar 21, 2017 at 11:20 . Subjective CC: Follow-up visit for hip fracture and other problems. HPI: No new problems. Generally more cooperative, but sometimes prefers to be left alone. No fever, cough, SOB. Denies hip pain. ROS: General- no fever, no chills Resp- as noted above in HPI Cardiac- no chest pain, no edema GI- diarrhea improved - no dysuria; voiding without difficulty . Objective Last 8 Hrs Date Time Temp Pulse Resp B/P (MAP) Pulse Ox O2 Delivery O2 Flow Rate FiO2 03/21/17 15:30 37.7 99 16 114/71 (85) 92 Room Air Physical Exam: General- lying in bed, no distress Lungs- mild wheezing, no respiratory distress Cardiovascular- RRR, no gallop appreciated, no JVD, no pretibial edema Abdomen- + BS, soft, nontender, pulsatile mass lower abdomen Extremities- no cyanosis, no calf tenderness; left hip incision without erythema or drainage Neuro- alert, cooperative, confused Skin- warm and dry . Assessment & Plan LEFT FEMORAL NECK FRACTURE ORIF performed 03/12. POD # 9. PT / OT. OSTEOPOROSIS Vitamin D level = 19. Supplement. Follow. ACUTE HYPOXIC RESPIRATORY FAILURE Worsening respiratory status postoperatively. PE ruled out by CTA. Contributing factors may have included: (1) pulmonary edema (interstitial prominence on CXR, elevated BNP) (2) possible pneumonia (3) exacerbation COPD Suspect that main problem was pulmonary edema, but felt best to treat for possible pneumonia as well. MRSA nasal swab negative, no MRSA pneumonia unlikely. Best to avoid quinolones due to confusion. Treated with IV piperacillin / tazobactam with improvement. Transitioned to oral therapy with amoxicillin / sulbactam to complete 7 day course. COPD Emphysematous changes noted on admission chest x-ray. Prior smoker. O2, incentive spirometry, nebs PRN. PULMONARY MASS 3 cm BETHANY density noted on chest x-ray. 8 mm groundglass nodule noted in RUL on CT. Chest x-ray at [facility] 05/26/16 did not demonstrate any apparent masses. Will need follow-up as clinically indicated. DEMENTIA Continue donepezil. Monitor for delirium. REMOTE HISTORY ALCOHOL ABUSE Continue thiamine. AAA 5.4 x 4.7 cm infrarenal AAA noted on CT. Will need follow-up as clinically indicated. Conservative management may be most appropriate given medical status. VTE PROPHYLAXIS SQ heparin and SCD's. Ambulate with assistance as tolerated. DISPOSITION Will need skilled care; specific plans to be determined. . Current Inpatient Medications: Current Inpatient Medications Medications (Trade) Dose Ordered Sig/[place] Route Start Time Stop Time Status Last Admin Dose Admin Naloxone HCl (Narcan Inj) 0.1 mg PRN PRN IV 03/11/17 14:15 04/10/17 14:14 Bisacodyl (Dulcolax Supp) 10 mg DAILY PRN [place] 03/11/17 14:15 04/10/17 14:14 Donepezil HCl (Aricept Tab) 5 mg DAILY PO 03/12/17 09:00 04/11/17 08:59 03/21/17 09:13 5 MG Mirtazapine (Remeron Tab) 15 mg HS PO 03/11/17 21:00 04/10/17 20:59 03/16/17 21:04 15 MG Ondansetron HCl (Zofran Inj) 4 mg Q6H PRN IV 03/12/17 15:45 04/11/17 15:44 03/20/17 09:35 4 MG Naloxone HCl (Narcan Inj) 0.4 mg Q1M PRN IV 03/12/17 15:45 04/11/17 15:44 Levalbuterol (Xopenex 0.63 Mg/ 3 Ml Neb) 0.63 mg Q2H PRN INH 03/13/17 16:30 04/12/17 16:29 Heparin Sodium (Porcine) (Heparin Sq 5000 Unit/0.5ml) 5,000 unit Q12 SQ 03/14/17 21:00 04/13/17 20:59 Enteral Nutritional Formula (Boost Plus Vanilla) 1 can BIDM PO 03/17/17 16:45 04/16/17 16:44 03/21/17 09:11 1 CAN Acetaminophen (Tylenol Tab) 500 mg Q4H PRN PO 03/18/17 04:15 04/17/17 04:14 03/19/17 14:49 500 MG Levalbuterol (Xopenex 1.25MG/ 0.5ML Neb) 1.25 mg QIDR PRN INH 03/18/17 13:00 04/12/17 19:59 Ipratropium [place] (Atrovent 0.02% 0.5MG/2.5ML Neb) 0.5 mg QIDR PRN INH 03/18/17 13:00 04/12/17 19:59 Amoxicillin/ Clavulanate Potassium (Augmentin Tab) 875 mg BIDM PO 03/19/17 08:30 03/26/17 08:29 03/21/17 09:13 875 MG Salmeterol Xinafoate/ Fluticasone (Advair Diskus 250/50 Inh) 1 puff BID INH 03/19/17 09:00 04/18/17 08:59 03/21/17 09:12 1 PUFF Albuterol/ Ipratropium (Combivent Respimat Inh) 1 puffs QID INH 03/19/17 09:00 04/18/17 08:59 03/21/17 16:33 1 PUFFS Albuterol (Ventolin Hfa Inhaler) 2 puffs Q6 PRN INH 03/19/17 03:45 04/18/17 03:44 Oxycodone HCl (Roxicodone Immediate Rel Tab) 5 mg Q6H PRN PO 03/19/17 15:45 04/02/17 15:44 03/20/17 15:37 5 MG
[2017-03-21] MEDS: MIRTAZAPINE TAB 15 MG TAB PO SCH (21:28)
[2017-03-22 00:55] VITALS: BP 110/71; PULSE 90; TEMP 37.1; O2SAT 90
[2017-03-22] MEDS: OXYCODONE HCL IR 5 MG TAB (IMMEDIATE RELEASE) PO PRN ×2 (00:58→14:00)
[2017-03-22 07:13] VITALS: BP 98/63; PULSE 87; TEMP 37.1; O2SAT 94
[2017-03-22 08:45] VITALS: O2SAT 94
[2017-03-22] MEDS: BOOST PLUS VANILLA PO SCH ×2 (08:57→18:35)
[2017-03-22] MEDS: IPRATROPIUM BROMIDE/ALBUTEROL respimat INH INH SCH ×4 (08:58→22:23)
[2017-03-22] MEDS: FLUTICASONE/SALMETEROL 250/50 (ADVAIR) 14 PUFF/1 INHALER INH SCH ×2 (08:58→22:23)
[2017-03-22] MEDS: HEPARIN SOD 5000 UNIT/0.5 ML CARP SQ SCH ×2 (08:59→21:00)
[2017-03-22] MEDS: AMOXICILLIN/CLAVULANATE TAB 875 MG TAB PO SCH ×2 (08:59→18:34)
[2017-03-22] MEDS: DONEPEZIL HCL 5 MG TAB PO SCH (09:32)
[2017-03-22 15:06] VITALS: BP 91/59; PULSE 89; TEMP 37.4; O2SAT 94
--- NOTE | 2017-03-22 19:46 | Progress Note ---
Medicine Progress Note Date & Time of Visit: Mar 22, 2017 at 17:05 . Subjective CC: Follow-up visit for hip fracture and other problems. HPI: Denies any problems. No fever, cough, SOB. Refused PT today. Denies hip pain. ROS: General- no fever, no chills Resp- as noted above in HPI Cardiac- no chest pain, no edema GI- appetite fair; no nausea, vomiting, diarrhea - voiding without difficulty . Objective Last 8 Hrs Date Time Temp Pulse Resp B/P (MAP) Pulse Ox O2 Delivery O2 Flow Rate FiO2 03/22/17 15:20 Room Air 03/22/17 15:06 37.4 89 18 91/59 (70) 94 Room Air Physical Exam: General- lying in bed, no distress Lungs- mild wheezing, no respiratory distress Cardiovascular- RRR, no gallop appreciated, no JVD, no pretibial edema Abdomen- + BS, soft, nontender, pulsatile mass lower abdomen Extremities- no cyanosis, no calf tenderness; left hip incision without erythema or drainage Neuro- alert, cooperative, confused Skin- warm and dry . Assessment & Plan LEFT FEMORAL NECK FRACTURE Bipolar hemiarthroplasty performed 03/[address] Dave. POD # 10. Staple removal per Ortho. PT / OT. OSTEOPOROSIS Vitamin D level = 19. Supplement. Follow. ACUTE HYPOXIC RESPIRATORY FAILURE Worsening respiratory status postoperatively. PE ruled out by CTA. Contributing factors may have included: (1) pulmonary edema (interstitial prominence on CXR, elevated BNP) (2) possible pneumonia (3) exacerbation COPD Suspect that main problem was pulmonary edema, but felt best to treat for possible pneumonia as well. MRSA nasal swab negative, so MRSA pneumonia unlikely. Avoided quinolones due to confusion. Treated with IV piperacillin / tazobactam with improvement. Transitioned to oral therapy with amoxicillin / sulbactam to complete 7 day course. COPD Emphysematous changes noted on admission chest x-ray. Prior smoker. O2, incentive spirometry, nebs PRN. PULMONARY MASS 3 cm BETHANY density noted on chest x-ray. 8 mm groundglass nodule noted in RUL on CT. Chest x-ray at [facility] 05/26/16 did not demonstrate any apparent masses. Will need follow-up as clinically indicated. DEMENTIA Continue donepezil. Monitor for delirium. REMOTE HISTORY ALCOHOL ABUSE Continue thiamine. AAA 5.4 x 4.7 cm infrarenal AAA noted on CT. Will need follow-up as clinically indicated. Conservative management may be most appropriate given medical status. VTE PROPHYLAXIS SQ heparin ordered, but often refuses. SCD's. Ambulate with assistance as tolerated. DISPOSITION Will need skilled care. Case Management consulted. Awaiting acceptance at snf facility. . Consultants: Ortho . Procedures: bipolar hemiarthroplasty 03/12/[address] Dave . Current Inpatient Medications: Current Inpatient Medications Medications (Trade) Dose Ordered Sig/[place] Route Start Time Stop Time Status Last Admin Dose Admin Naloxone HCl (Narcan Inj) 0.1 mg PRN PRN IV 03/11/17 14:15 04/10/17 14:14 Bisacodyl (Dulcolax Supp) 10 mg DAILY PRN [place] 03/11/17 14:15 04/10/17 14:14 Donepezil HCl (Aricept Tab) 5 mg DAILY PO 03/12/17 09:00 04/11/17 08:59 03/22/17 09:32 5 MG Mirtazapine (Remeron Tab) 15 mg HS PO 03/11/17 21:00 04/10/17 20:59 03/21/17 21:28 15 MG Ondansetron HCl (Zofran Inj) 4 mg Q6H PRN IV 03/12/17 15:45 04/11/17 15:44 03/20/17 09:35 4 MG Naloxone HCl (Narcan Inj) 0.4 mg Q1M PRN IV 03/12/17 15:45 04/11/17 15:44 Levalbuterol (Xopenex 0.63 Mg/ 3 Ml Neb) 0.63 mg Q2H PRN INH 03/13/17 16:30 04/12/17 16:29 Heparin Sodium (Porcine) (Heparin Sq 5000 Unit/0.5ml) 5,000 unit Q12 SQ 03/14/17 21:00 04/13/17 20:59 03/21/17 21:39 5,000 UNIT Enteral Nutritional Formula (Boost Plus Vanilla) 1 can BIDM PO 03/17/17 16:45 04/16/17 16:44 03/22/17 18:35 1 CAN Acetaminophen (Tylenol Tab) 500 mg Q4H PRN PO 03/18/17 04:15 04/17/17 04:14 03/19/17 14:49 500 MG Levalbuterol (Xopenex 1.25MG/ 0.5ML Neb) 1.25 mg QIDR PRN INH 03/18/17 13:00 04/12/17 19:59 Ipratropium [place] (Atrovent 0.02% 0.5MG/2.5ML Neb) 0.5 mg QIDR PRN INH 03/18/17 13:00 04/12/17 19:59 Amoxicillin/ Clavulanate Potassium (Augmentin Tab) 875 mg BIDM PO 03/19/17 08:30 03/26/17 08:29 03/22/17 18:34 875 MG Salmeterol Xinafoate/ Fluticasone (Advair Diskus 250/50 Inh) 1 puff BID INH 03/19/17 09:00 04/18/17 08:59 03/22/17 08:58 1 PUFF Albuterol/ Ipratropium (Combivent Respimat Inh) 1 puffs QID INH 03/19/17 09:00 04/18/17 08:59 03/22/17 18:34 1 PUFFS Albuterol (Ventolin Hfa Inhaler) 2 puffs Q6 PRN INH 03/19/17 03:45 04/18/17 03:44 Oxycodone HCl (Roxicodone Immediate Rel Tab) 5 mg Q6H PRN PO 03/19/17 15:45 04/02/17 15:44 03/22/17 14:00 5 MG
[2017-03-22] MEDS: MIRTAZAPINE TAB 15 MG TAB PO SCH (22:24)
[2017-03-23 07:25] VITALS: BP 106/69; PULSE 83; TEMP 37.3; O2SAT 94
[2017-03-23] MEDS: DONEPEZIL HCL 5 MG TAB PO SCH (08:34)
[2017-03-23] MEDS: IPRATROPIUM BROMIDE/ALBUTEROL respimat INH INH SCH ×4 (08:34→21:57)
[2017-03-23] MEDS: BOOST PLUS VANILLA PO SCH ×2 (08:34→18:14)
[2017-03-23] MEDS: FLUTICASONE/SALMETEROL 250/50 (ADVAIR) 14 PUFF/1 INHALER INH SCH ×2 (08:34→21:57)
[2017-03-23] MEDS: AMOXICILLIN/CLAVULANATE TAB 875 MG TAB PO SCH ×2 (08:34→18:15)
[2017-03-23] MEDS: HEPARIN SOD 5000 UNIT/0.5 ML CARP SQ SCH ×2 (09:00→21:00)
[2017-03-23 12:38] VITALS: BP 102/67; PULSE 85; TEMP 37.3; O2SAT 94
[2017-03-23] MEDS ORDERED: ALUMINUM/MAGNESIUM SUSP 30 ML UDC PO STA (12:58)
[2017-03-23] MEDS ORDERED: ALUMINUM/MAGNESIUM SUSP 30 ML UDC PO PRN (13:00)
--- NOTE | 2017-03-23 13:13 | Progress Note ---
Medicine Progress Note Date & Time of Visit: Mar 23, 2017 at 12:59. Subjective patient reported left sided chest pain to RN seen at bedside, comfortable, not in distress not oriented states he has left sided chest pain- located with 2 fingers, non radiating, no other associated symptoms started yesterday, intermittent, no other associated symptoms, not associated with exertion denies other symptoms Objective Last 8 Hrs Date Time Temp Pulse Resp B/P (MAP) Pulse Ox O2 Delivery O2 Flow Rate FiO2 03/23/17 12:38 37.3 85 18 102/67 (79) 94 Room Air 03/23/17 07:25 37.3 83 18 106/69 (81) 94 Room Air 03/23/17 07:10 Room Air Physical Exam: General- oriented x 1, not in distress, speaks in sentences with no effort Head- atraumatic Eyes- PERRL, EOMI, anicteric ENT- oropharynx clear Neck- supple, no JVD, no adenopathy, no thyromegaly Lungs- clear breath sounds bilaterally, no rales/wheezes Heart- regular rhythm; no murmur, normal rate Abdomen- normal bowel sounds, soft, nontender Extremities- patient declined exam of the lower ext Neuro- alert, oriented x 1; no gross focal deficits Skin- warm & dry Laboratory Results: Last 24 Hours Test 03/23/17 12:57 Assessment & Plan LEFT FEMORAL NECK FRACTURE Bipolar hemiarthroplasty performed 03/[address] Dave. POD # 11 Staple removal per Ortho. PT / OT. CHEST PAIN, ATYPICAL r/o ACS EKG non ischemic cardiac markers x 3 pending possible muscular?PRN tylenol possible Reflux? PRN maalox OSTEOPOROSIS Vitamin D level = 19. -- supplemented ACUTE HYPOXIC RESPIRATORY FAILURE, RESOLVED Worsening respiratory status postoperatively. PE ruled out by CTA. Contributing factors may have included: (1) pulmonary edema (interstitial prominence on CXR, elevated BNP) (2) possible pneumonia (3) exacerbation COPD Treated with IV piperacillin / tazobactam with improvement. Transitioned to oral therapy with amoxicillin / sulbactam to complete 7 day course. COPD Emphysematous changes noted on admission chest x-ray. Prior smoker. O2, incentive spirometry, nebs PRN. -- stable PULMONARY MASS 3 cm BETHANY density noted on chest x-ray. 8 mm groundglass nodule noted in RUL on CT. Chest x-ray at [facility] 05/26/16 did not demonstrate any apparent masses. Will need follow-up as clinically indicated. DEMENTIA Continue donepezil. Monitor for delirium. REMOTE HISTORY ALCOHOL ABUSE Continue thiamine. AAA 5.4 x 4.7 cm infrarenal AAA noted on CT. Will need follow-up as clinically indicated. Conservative management may be most appropriate given medical status. VTE PROPHYLAXIS SQ heparin ordered, but often refuses. SCD's. Ambulate with assistance as tolerated. DISPOSITION Will need skilled care. Case Management consulted. Awaiting acceptance at senior care facility. . Consultants: Ortho . Procedures: bipolar hemiarthroplasty 03/12/[address] Dave Consultants: Ortho . Procedures: bipolar hemiarthroplasty 03/12/[address] Dave . Current Inpatient Medications: Current Inpatient Medications Medications (Trade) Dose Ordered Sig/[place] Route Start Time Stop Time Status Last Admin Dose Admin Naloxone HCl (Narcan Inj) 0.1 mg PRN PRN IV 03/11/17 14:15 04/10/17 14:14 Bisacodyl (Dulcolax Supp) 10 mg DAILY PRN [place] 03/11/17 14:15 04/10/17 14:14 Donepezil HCl (Aricept Tab) 5 mg DAILY PO 03/12/17 09:00 04/11/17 08:59 03/23/17 08:34 5 MG Mirtazapine (Remeron Tab) 15 mg HS PO 03/11/17 21:00 04/10/17 20:59 03/22/17 22:24 15 MG Ondansetron HCl (Zofran Inj) 4 mg Q6H PRN IV 03/12/17 15:45 04/11/17 15:44 03/20/17 09:35 4 MG Naloxone HCl (Narcan Inj) 0.4 mg Q1M PRN IV 03/12/17 15:45 04/11/17 15:44 Levalbuterol (Xopenex 0.63 Mg/ 3 Ml Neb) 0.63 mg Q2H PRN INH 03/13/17 16:30 04/12/17 16:29 Heparin Sodium (Porcine) (Heparin Sq 5000 Unit/0.5ml) 5,000 unit Q12 SQ 03/14/17 21:00 04/13/17 20:59 03/21/17 21:39 5,000 UNIT Enteral Nutritional Formula (Boost Plus Vanilla) 1 can BIDM PO 03/17/17 16:45 04/16/17 16:44 03/23/17 08:34 1 CAN Acetaminophen (Tylenol Tab) 500 mg Q4H PRN PO 03/18/17 04:15 04/17/17 04:14 03/19/17 14:49 500 MG Levalbuterol (Xopenex 1.25MG/ 0.5ML Neb) 1.25 mg QIDR PRN INH 03/18/17 13:00 04/12/17 19:59 Ipratropium [place] (Atrovent 0.02% 0.5MG/2.5ML Neb) 0.5 mg QIDR PRN INH 03/18/17 13:00 04/12/17 19:59 Amoxicillin/ Clavulanate Potassium (Augmentin Tab) 875 mg BIDM PO 03/19/17 08:30 03/26/17 08:29 03/23/17 08:34 875 MG Salmeterol Xinafoate/ Fluticasone (Advair Diskus 250/50 Inh) 1 puff BID INH 03/19/17 09:00 04/18/17 08:59 03/23/17 08:34 1 PUFF Albuterol/ Ipratropium (Combivent Respimat Inh) 1 puffs QID INH 03/19/17 09:00 04/18/17 08:59 03/23/17 12:33 1 PUFFS Albuterol (Ventolin Hfa Inhaler) 2 puffs Q6 PRN INH 03/19/17 03:45 04/18/17 03:44 Oxycodone HCl (Roxicodone Immediate Rel Tab) 5 mg Q6H PRN PO 03/19/17 15:45 04/02/17 15:44 03/22/17 14:00 5 MG
[2017-03-23 15:29] VITALS: BP 130/81; PULSE 85; TEMP 37.3; O2SAT 94
[2017-03-23] MEDS: MIRTAZAPINE TAB 15 MG TAB PO SCH (21:57)
[2017-03-24 00:30] VITALS: BP 104/65; PULSE 85; TEMP 37.6; O2SAT 95
[2017-03-24 07:17] VITALS: BP 109/73; PULSE 79; TEMP 37.2; O2SAT 96
[2017-03-24] MEDS: BOOST PLUS VANILLA PO SCH ×2 (08:30→17:16)
[2017-03-24] MEDS: AMOXICILLIN/CLAVULANATE TAB 875 MG TAB PO SCH ×2 (08:30→17:16)
[2017-03-24] MEDS: DONEPEZIL HCL 5 MG TAB PO SCH (09:00)
[2017-03-24] MEDS: FLUTICASONE/SALMETEROL 250/50 (ADVAIR) 14 PUFF/1 INHALER INH SCH ×2 (09:00→21:50)
[2017-03-24] MEDS: IPRATROPIUM BROMIDE/ALBUTEROL respimat INH INH SCH ×4 (09:00→21:50)
[2017-03-24] MEDS: HEPARIN SOD 5000 UNIT/0.5 ML CARP SQ SCH ×3 (10:46→21:58)
[2017-03-24 15:38] VITALS: BP 146/80; PULSE 90; TEMP 37; O2SAT 95
[2017-03-24 16:00] VITALS: O2SAT 95
[2017-03-24] MEDS: OXYCODONE HCL IR 5 MG TAB (IMMEDIATE RELEASE) PO PRN (17:26)
--- NOTE | 2017-03-24 19:50 | Progress Note ---
Medicine Progress Note Date & Time of Visit: Mar 24, 2017 at 19:47. Subjective patient seen resting in bed, comfortable states he feels fine denies chest pain or any other pain denies dyspnea, dizziness, nausea no other symptoms Objective Last 8 Hrs Date Time Temp Pulse Resp B/P (MAP) Pulse Ox O2 Delivery O2 Flow Rate FiO2 03/24/17 16:00 95 Room Air 03/24/17 15:38 37.0 90 18 146/80 (102) 95 Room Air Physical Exam: General- oriented x 1, not in distress, speaks in sentences with no effort Eyes- anicteric Neck- supple, no JVD Lungs- declined lung exam Heart- regular rhythm; no murmur, normal rate Abdomen- declined Extremities- patient declined exam of the lower ext Neuro- alert, oriented x 1; no gross focal deficits noted Skin- warm & dry Laboratory Results: Last 24 Hours Test 03/24/17 00:57 Troponin I < 0.015 ng/ml Assessment & Plan LEFT FEMORAL NECK FRACTURE Bipolar hemiarthroplasty performed 03/[address] Dave. POD # 12 Staple removal per Ortho. PT / OT. -- on Heparin q12h CHEST PAIN, ATYPICAL, RESOLVED ACS ruled out EKG non ischemic troponin negative possible muscular?PRN tylenol possible Reflux? PRN maalox OSTEOPOROSIS Vitamin D level = 19. -- supplemented ACUTE HYPOXIC RESPIRATORY FAILURE, RESOLVED Worsening respiratory status postoperatively. PE ruled out by CTA. Contributing factors may have included: (1) pulmonary edema (interstitial prominence on CXR, elevated BNP) (2) possible pneumonia (3) exacerbation COPD Treated with IV piperacillin / tazobactam with improvement. Transitioned to oral therapy with amoxicillin / sulbactam to complete 7 day course -- 1 more day COPD Emphysematous changes noted on admission chest x-ray. Prior smoker. O2, incentive spirometry, nebs PRN. -- stable PULMONARY MASS 3 cm BETHANY density noted on chest x-ray. 8 mm groundglass nodule noted in RUL on CT. Chest x-ray at [facility] 05/26/16 did not demonstrate any apparent masses. Will need follow-up as clinically indicated. DEMENTIA Continue donepezil. Monitor for delirium. REMOTE HISTORY ALCOHOL ABUSE Continue thiamine. AAA 5.4 x 4.7 cm infrarenal AAA noted on CT. Will need follow-up as clinically indicated. Conservative management may be most appropriate given medical status. VTE PROPHYLAXIS SQ heparin ordered, but often refuses. SCD's. Ambulate with assistance as tolerated. DISPOSITION Will need skilled care. Case Management consulted. [facility]. . Consultants: Ortho . Procedures: bipolar hemiarthroplasty 03/12/[address] Dave Consultants: Ortho . Procedures: bipolar hemiarthroplasty 03/12/[address] Dave . Current Inpatient Medications: Current Inpatient Medications Medications (Trade) Dose Ordered Sig/[place] Route Start Time Stop Time Status Last Admin Dose Admin Naloxone HCl (Narcan Inj) 0.1 mg PRN PRN IV 03/11/17 14:15 04/10/17 14:14 Bisacodyl (Dulcolax Supp) 10 mg DAILY PRN [place] 03/11/17 14:15 04/10/17 14:14 Donepezil HCl (Aricept Tab) 5 mg DAILY PO 03/12/17 09:00 04/11/17 08:59 03/24/17 09:00 5 MG Mirtazapine (Remeron Tab) 15 mg HS PO 03/11/17 21:00 04/10/17 20:59 03/23/17 21:57 15 MG Ondansetron HCl (Zofran Inj) 4 mg Q6H PRN IV 03/12/17 15:45 04/11/17 15:44 03/20/17 09:35 4 MG Naloxone HCl (Narcan Inj) 0.4 mg Q1M PRN IV 03/12/17 15:45 04/11/17 15:44 Levalbuterol (Xopenex 0.63 Mg/ 3 Ml Neb) 0.63 mg Q2H PRN INH 03/13/17 16:30 04/12/17 16:29 Heparin Sodium (Porcine) (Heparin Sq 5000 Unit/0.5ml) 5,000 unit Q12 SQ 03/14/17 21:00 04/13/17 20:59 03/24/17 10:46 5,000 UNIT Enteral Nutritional Formula (Boost Plus Vanilla) 1 can BIDM PO 03/17/17 16:45 04/16/17 16:44 03/24/17 17:16 1 CAN Acetaminophen (Tylenol Tab) 500 mg Q4H PRN PO 03/18/17 04:15 04/17/17 04:14 03/19/17 14:49 500 MG Levalbuterol (Xopenex 1.25MG/ 0.5ML Neb) 1.25 mg QIDR PRN INH 03/18/17 13:00 04/12/17 19:59 Ipratropium [place] (Atrovent 0.02% 0.5MG/2.5ML Neb) 0.5 mg QIDR PRN INH 03/18/17 13:00 04/12/17 19:59 Amoxicillin/ Clavulanate Potassium (Augmentin Tab) 875 mg BIDM PO 03/19/17 08:30 03/26/17 08:29 03/24/17 17:16 875 MG Salmeterol Xinafoate/ Fluticasone (Advair Diskus 250/50 Inh) 1 puff BID INH 03/19/17 09:00 04/18/17 08:59 03/24/17 09:00 1 PUFF Albuterol/ Ipratropium (Combivent Respimat Inh) 1 puffs QID INH 03/19/17 09:00 04/18/17 08:59 03/24/17 17:16 1 PUFFS Albuterol (Ventolin Hfa Inhaler) 2 puffs Q6 PRN INH 03/19/17 03:45 04/18/17 03:44 Oxycodone HCl (Roxicodone Immediate Rel Tab) 5 mg Q6H PRN PO 03/19/17 15:45 04/02/17 15:44 03/24/17 17:26 5 MG Al Hydroxide/Mg Hydroxide (Maalox Susp) 30 ml Q6H PRN PO 03/23/17 13:00 04/22/17 12:59
[2017-03-24] MEDS: MIRTAZAPINE TAB 15 MG TAB PO SCH (21:50)
[2017-03-24 23:35] VITALS: BP 95/61; PULSE 81; TEMP 37.1; O2SAT 99
[2017-03-25 07:41] VITALS: BP 111/71; PULSE 88; TEMP 36.5; O2SAT 95
[2017-03-25] MEDS: AMOXICILLIN/CLAVULANATE TAB 875 MG TAB PO SCH (08:30)
[2017-03-25] MEDS: FLUTICASONE/SALMETEROL 250/50 (ADVAIR) 14 PUFF/1 INHALER INH SCH (08:30)
[2017-03-25] MEDS: IPRATROPIUM BROMIDE/ALBUTEROL respimat INH INH SCH ×2 (08:30→13:19)
[2017-03-25] MEDS: BOOST PLUS VANILLA PO SCH (08:30)
[2017-03-25] MEDS: HEPARIN SOD 5000 UNIT/0.5 ML CARP SQ SCH (08:36)
[2017-03-25] MEDS: DONEPEZIL HCL 5 MG TAB PO SCH (08:36)
[2017-03-25 13:45] VITALS: BP 111/71; PULSE 88; TEMP 36.5; O2SAT 95
--- NOTE | 2017-03-25 14:43 | Progress Note ---
Medicine Progress Note Date & Time of Visit: Mar 25, 2017 at 14:33. Subjective seen resting in bed, comfortable states he feels fine overall denies hip pain or any other discomfort denies chest pain, dyspnea, no other symptoms Objective Last 8 Hrs Date Time Temp Pulse Resp B/P (MAP) Pulse Ox O2 Delivery O2 Flow Rate FiO2 03/25/17 13:45 36.5 88 18 95 Room Air 03/25/17 07:41 36.5 88 18 111/71 (84) 95 Room Air 03/25/17 07:00 Room Air Physical Exam: General- oriented x 1, not in distress, speaks in sentences with no effort Eyes- anicteric Neck- no JVD Lungs- clear breath sounds bilaterally Heart- regular rhythm; no murmur, normal rate Abdomen- non distended, normal bowel sounds, soft, nontender Extremities- no edema Neuro- alert, oriented x 1; no gross focal deficits noted Skin- warm & dry Laboratory Results: Last 24 Hours Test 03/25/17 11:24 Assessment & Plan LEFT FEMORAL NECK FRACTURE s/p Bipolar Hemiarthroplasty on 03/12/[address] Dave - post op day #13 pain well controlled patient declining PT/OT - javier removed 03/25/[address] Dave ([facility]) in 1 week - on Heparin SC q12h for DVT prophylaxis (patient has been declining) consider Aspirin 81mg BID if still declining Heparin, per Ortho per Ortho, maintain on DVT prophylaxis for 2 more weeks to complete 1 month after surgery - continue PT/OT Ortho Discharge Instructions: * YOU MAY SHOWER, NO TUB BATHS UNTIL CLEARED BY YOUR DOCTOR. * WEAR PATRICK HOSE 20 HOURS PER DAY FOR 2 WEEKS. * YOU SHOULD USE A WALKER OR CRUTCHES FOR 2-4 WEEKS. THIS WILL HELP PREVENT STRAIN ON YOUR HIP MUSCLE AND ALLOW IT TO HEAL PROPERLY. YOU MAY WEAN TO A CANE TOLERATED. * MOST PATIENTS WILL HAVE HOME NURSING FOR THERAPY. IF YOU DECIDE TO DO OUTPATIENT PHYSICAL THERAPY, PLEASE SCHEDULE THIS 3 TIMES PER WEEK. * DAILY DRESSING CHANGES. KEEP WOUND COVERED. FOLLOW UP VISIT: If appointment is not already scheduled: Please call [facility] (DR DAVE) to make a follow-up appointment CHEST PAIN, ATYPICAL, RESOLVED ACS ruled out EKG non ischemic troponin negative possible muscular?PRN tylenol possible Reflux? PRN maalox OSTEOPOROSIS Vitamin D level = 19. -- supplement ACUTE HYPOXIC RESPIRATORY FAILURE, RESOLVED Worsening respiratory status postoperatively. PE ruled out by CTA. Contributing factors may have included: (1) pulmonary edema (interstitial prominence on CXR, elevated BNP) (2) possible pneumonia (3) exacerbation COPD Treated with IV piperacillin / tazobactam with improvement. Transitioned to oral therapy with amoxicillin / sulbactam - completed 7 days COPD Emphysematous changes noted on admission chest x-ray. Prior smoker. - placed on Advair and Combivent due to pneumonia wean off accordingly PULMONARY MASS 3 cm BETHANY density noted on chest x-ray. 8 mm groundglass nodule noted in RUL on CT. Chest x-ray at [facility] 05/26/16 did not demonstrate any apparent masses. Will need follow-up as clinically indicated. DEMENTIA Continue donepezil. Monitor for delirium. REMOTE HISTORY ALCOHOL ABUSE Continue thiamine. AAA 5.4 x 4.7 cm infrarenal AAA noted on CT. Will need follow-up as clinically indicated. Conservative management may be most appropriate given medical status. DVT PROPHYLAXIS - on Heparin SC q12h for DVT prophylaxis (patient has been declining) consider Aspirin 324mg BID if still declining Heparin SCD's. Ambulate with assistance as tolerated. DISPOSITION patient to be transitioned back to [facility] per case management, son agreeable ff up with [facility] c/o Dr. Dave in 1 week ff up with Primary Care Physician in [facility] Consultants: Ortho . Procedures: bipolar hemiarthroplasty 03/12/[address] Dave . Current Inpatient Medications: Current Inpatient Medications Medications (Trade) Dose Ordered Sig/[place] Route Start Time Stop Time Status Last Admin Dose Admin Naloxone HCl (Narcan Inj) 0.1 mg PRN PRN IV 03/11/17 14:15 04/10/17 14:14 Bisacodyl (Dulcolax Supp) 10 mg DAILY PRN [place] 03/11/17 14:15 04/10/17 14:14 03/24/17 21:42 10 MG Donepezil HCl (Aricept Tab) 5 mg DAILY PO 03/12/17 09:00 04/11/17 08:59 03/24/17 09:00 5 MG Mirtazapine (Remeron Tab) 15 mg HS PO 03/11/17 21:00 04/10/17 20:59 03/24/17 21:50 15 MG Ondansetron HCl (Zofran Inj) 4 mg Q6H PRN IV 03/12/17 15:45 04/11/17 15:44 03/20/17 09:35 4 MG Naloxone HCl (Narcan Inj) 0.4 mg Q1M PRN IV 03/12/17 15:45 04/11/17 15:44 Levalbuterol (Xopenex 0.63 Mg/ 3 Ml Neb) 0.63 mg Q2H PRN INH 03/13/17 16:30 04/12/17 16:29 Heparin Sodium (Porcine) (Heparin Sq 5000 Unit/0.5ml) 5,000 unit Q12 SQ 03/14/17 21:00 04/13/17 20:59 03/25/17 08:36 5,000 UNIT Enteral Nutritional Formula (Boost Plus Vanilla) 1 can BIDM PO 03/17/17 16:45 04/16/17 16:44 03/25/17 08:30 1 CAN Acetaminophen (Tylenol Tab) 500 mg Q4H PRN PO 03/18/17 04:15 04/17/17 04:14 03/19/17 14:49 500 MG Levalbuterol (Xopenex 1.25MG/ 0.5ML Neb) 1.25 mg QIDR PRN INH 03/18/17 13:00 04/12/17 19:59 Ipratropium [place] (Atrovent 0.02% 0.5MG/2.5ML Neb) 0.5 mg QIDR PRN INH 03/18/17 13:00 04/12/17 19:59 Amoxicillin/ Clavulanate Potassium (Augmentin Tab) 875 mg BIDM PO 03/19/17 08:30 03/26/17 08:29 03/25/17 08:30 875 MG Salmeterol Xinafoate/ Fluticasone (Advair Diskus 250/50 Inh) 1 puff BID INH 03/19/17 09:00 04/18/17 08:59 03/25/17 08:30 1 PUFF Albuterol/ Ipratropium (Combivent Respimat Inh) 1 puffs QID INH 03/19/17 09:00 04/18/17 08:59 1/25/18 13:19 1 PUFFS Albuterol (Ventolin Hfa Inhaler) 2 puffs Q6 PRN INH 03/19/17 03:45 04/18/17 03:44 Oxycodone HCl (Roxicodone Immediate Rel Tab) 5 mg Q6H PRN PO 03/19/17 15:45 04/02/17 15:44 03/24/17 17:26 5 MG Al Hydroxide/Mg Hydroxide (Maalox Susp) 30 ml Q6H PRN PO 03/23/17 13:00 04/22/17 12:59
[2017-03-25] MEDS ORDERED: ADVIN25050 INH (14:47)
[2017-03-25] MEDS ORDERED: HPRIS5M SQ ×2 (14:47→15:02)
[2017-03-25] MEDS ORDERED: IPRA1AER2 INH (14:47)
--- NOTE | 2017-03-25 14:55 | Discharge Summary ---
Discharge Summary Date of Service Mar 25, 2017. Discharge Summary Admission Date: Mar 11, 2017 at 13:14 Discharge Date: Mar 25, 2017 Discharge Disposition: [facility] facility Principal Diagnosis: LEFT FEMORAL NECK FRACTURE s/p Bipolar Hemiarthroplasty on 03/12/[address] Martínez Secondary Diagnoses/Problems: Please refer to hospital course below. Procedures: bipolar hemiarthroplasty 03/12/[address] Martínez . Consultations: Orthopedic Surgery Dr. Martínez Pending Studies/Follow-Up: Please refer to hospital course below. Medication Reconciliation New Medications: Cholecalciferol (Vitamin D3) 1,000 Inter.unit Tab 1 TAB PO DAILY for 30 Days Fluticasone Prop/Salmeterol (Advair Diskus 250-50 Mcg/Dose) 14 Puff/1 Inhaler Aerp 1 PUFF INH BID for 30 Days Heparin Sod (Porcine) (Heparin Sodium) 5,000 Unit/0.5 Ml Inj 5000 UNIT SQ Q12 for 14 Days Ipratropium-Albuterol (Combivent Respimat) 1 Aer Aer 1 PUFFS INH QID for 7 Days Continued Medications: Acetaminophen (Tylenol) 325 Mg Tab 650 MG PO Q4 PRN for Fever, TAB for temps over 101. no more than 3grams per 24 hours Acetaminophen (Tylenol) 325 Mg Tab 650 MG PO Q6 PRN for Pain, TAB no more than 3 grams per 24 hours Ascorbic Acid (Ascorbic Acid) 500 Mg Tab 500 MG PO DAILY, TAB Bisacodyl (Dulcolax) 10 Mg Sup 10 MG CA DAILY PRN for Constipation, SUP give if only no relief within 8 hours of milk of magnesia Donepezil Hydrochloride (Donepezil Hcl) 5 Mg Tab 5 MG PO DAILY for 90 Days, #90 TAB 3 Refills Folic Acid (Folvite) 1 Mg Tab 1 MG PO DAILY, TAB Magnesium Hydroxide (Milk Of Magnesia) 30 Ml Susp 30 ML PO DAILY PRN for Constipation, ML Mineral Oil (Enema Mineral Oil) 1 Jocelyn Jocelyn 1 BTL CA DAILY PRN for Constipation give if no results from dulcolax after 8 hours Mirtazapine (Remeron) 15 Mg Tab 15 MG PO HS, TAB Multivitamin (Multivitamin) Tab 1 TAB PO DAILY, TAB Nutritional Supplements (Prosource No Carb) 1 Liq Liq 1 PKT PO DAILY Thiamine Hcl (Vitamin B-1) 50 Mg Tab 50 MG PO DAILY, TAB Tramadol (Ultram) 50 Mg Tab 50 MG PO BID PRN for Pain, TAB Admission Information HPI (per Admitting provider): Pt is 71 y/o M with PMH heavy alcohol use, no use alcohol for couple of years, dementia, depression presented to ER from [facility] with c/o fall and left hip pain. Pt oriented to person, limited history able to be obtained from pt. Reported that pt ambulating to bathroom this morning when he fell and c/o L hip pain and inability to stand or walk. Unsure if hit his head. Pt only c/o pain to L hip. No known fever, SHETTY, CP, SOB, cough, abdominal pain, urinary symptoms In ER pt initially not agreeable to any labs, IV. Femur x-ray: Subcapital left hip fracture. CXR: 3 cm irregular density within the left upper lobe. Emphysema. Pt was given zofran ODT, Dilaudid 0.5mg IM x 2. Then agreeable to IV and labs and agrees to hospital admission for hip fracture and possible repair. Pt given ativan 2mg SL, Haldol 10mg po and dialudid 0.5mg IV. WBC: 12.8. Pt refuses michael. pending UA. Physical Exam (per Admitting): General Appearance: + cachetic, + thin Head: normocephalic, atraumatic Eyes: normal inspection, PERRL, EOMI, sclerae normal ENT: hearing grossly normal, pharynx normal, + pertinent finding (mucous membranes moist) Neck: supple, no JVD, trachea midline Respiratory/Chest: chest non-tender, lungs clear, normal breath sounds, no respiratory distress, no accessory muscle use Cardiovascular: regular rate, rhythm, no edema, normal peripheral pulses Abdomen/GI: normal bowel sounds, non tender, soft Extremities/Musculoskelatal: normal capillary refill, no pedal edema, + pertinent finding (Left hip with tenderness to palpation, pt holding left leg straight and unwilling to move. Left knee and ankle non-tender. R lower extremity non-tender, ROM intact, bilateral upper extremities non-tender, ROM intact. upper and lower extremities bilaterally with distal pulses intact, brisk capillary refill, sensation to light touch intact) Neurologic/Psych: alert, + pertinent finding (oriented to person, not oriented to place or time. Irritable ) Skin: normal color, warm/dry Hospital Course LEFT FEMORAL NECK FRACTURE s/p Bipolar Hemiarthroplasty on 03/12/[address] Martínez - post op day #13 pain well controlled patient declining PT/OT - javier removed 03/25/[address] Martínez ([facility]) in 1 week - on Heparin SC q12h for DVT prophylaxis (patient has been declining) consider Aspirin 81mg BID if still declining Heparin, per Ortho per Ortho, maintain on DVT prophylaxis for 2 more weeks to complete 1 month after surgery - continue PT/OT weight bearing as tolerated Ortho Discharge Instructions: * YOU MAY SHOWER, NO TUB BATHS UNTIL CLEARED BY YOUR DOCTOR. * WEAR PATRICK HOSE 20 HOURS PER DAY FOR 2 WEEKS. * YOU SHOULD USE A WALKER OR CRUTCHES FOR 2-4 WEEKS. THIS WILL HELP PREVENT STRAIN ON YOUR HIP MUSCLE AND ALLOW IT TO HEAL PROPERLY. YOU MAY WEAN TO A CANE TOLERATED. * MOST PATIENTS WILL HAVE HOME NURSING FOR THERAPY. IF YOU DECIDE TO DO OUTPATIENT PHYSICAL THERAPY, PLEASE SCHEDULE THIS 3 TIMES PER WEEK. * DAILY DRESSING CHANGES. KEEP WOUND COVERED. FOLLOW UP VISIT: If appointment is not already scheduled: Please call [facility] (DR MARTÍNEZ) to make a follow-up appointment CHEST PAIN, ATYPICAL, RESOLVED ACS ruled out EKG non ischemic troponin negative possible muscular?PRN tylenol possible Reflux? PRN maalox OSTEOPOROSIS Vitamin D level = 19. -- supplement ACUTE HYPOXIC RESPIRATORY FAILURE, RESOLVED Worsening respiratory status postoperatively. PE ruled out by CTA. Contributing factors may have included: (1) pulmonary edema (interstitial prominence on CXR, elevated BNP) (2) possible pneumonia (3) exacerbation COPD Treated with IV piperacillin / tazobactam with improvement. Transitioned to oral therapy with amoxicillin / sulbactam - completed 7 days COPD Emphysematous changes noted on admission chest x-ray. Prior smoker. - placed on Advair and Combivent due to pneumonia wean off accordingly PULMONARY MASS 3 cm BETHANY density noted on chest x-ray. 8 mm groundglass nodule noted in RUL on CT. Chest x-ray at [facility] 05/26/16 did not demonstrate any apparent masses. Will need follow-up as clinically indicated. DEMENTIA Continue donepezil. Monitor for delirium. REMOTE HISTORY ALCOHOL ABUSE Continue thiamine. AAA 5.4 x 4.7 cm infrarenal AAA noted on CT. Will need follow-up as clinically indicated. Conservative management may be most appropriate given medical status. DVT PROPHYLAXIS - on Heparin SC q12h for DVT prophylaxis (patient has been declining) consider Aspirin 81mg BID if still declining Heparin, per Ortho per Ortho, maintain on DVT prophylaxis for 2 more weeks to complete 1 month after surgery SCD's. Ambulate with assistance as tolerated. DISPOSITION patient to be transitioned back to [facility] per case management, son agreeable ff up with [facility] c/o Dr. Martínez in 1 week ff up with Primary Care Physician in [facility] Total time spent on discharge = 50 minutes This includes examination of the patient, discharge planning, medication reconciliation, and communication with other providers. Discharge Instructions Discharge Instructions Date of Service Mar 25, 2017. Admission Reason for Admission: Hip Fracture, Left Discharge Discharge Diagnosis / Problem: LEFT HIP FRACTURE, S/P SURGERY Discharge Goals Goal(s): Diagnostic testing, Therapeutic intervention Activity Recommendations Activity Level: Assistance Required Therapies: Physical Therapy, Weight Bearing Status ( TOLERATED), Occupational Therapy . Additional Information Patient informed of condition: Yes Advance Directives: No (UNKNOWN) DNR: Yes Level of Care: Skilled Communicable Disease: No Prognosis: Stable Instructions / Follow-Up Instructions / Follow-Up PLEASE REFER TO ACCOMPANYING HOSPITAL DISCHARGE SUMMARY. Current Hospital Diet Patient's current hospital diet: Regular Diet Discharge Diet Recommended Diet: Regular Diet Procedures Procedures Performed: Left Bipolar Hemiarthroplasty- Cemented Pending Studies Studies pending at discharge: no Physician Orders On Transfer Special Precautions: PLEASE REFER TO ACCOMPANYING HOSPITAL DISCHARGE SUMMARY. Medical Emergencies . Who to Call and When: Medical Emergencies: If at any time you feel your situation is an emergency, please call 911 immediately. . Non-Emergent Contact Non-Emergency issues call your: Primary Care Provider, Surgeon Call Non-Emergent contact if: you have a fever, your pain is not controlled, your pain is worsening, wound has increased drainage, wound has increased redness, wound has increased pain, you have any medication questions . Past History Medical & Surgical History: (1) Hip fracture, left (2) Dementia (3) Depression . "Provider Documentation" section prepared by Danny Marcum. . [employer] Recommendations [employer] Recommendations: ACTIVITY RECOMMENDATIONS: SELF CARE INSTRUCTIONS AFTER HIP HEMIARTHROPLASTY. Until the incision and soft tissues around your hip have healed, there is a possibility that the hip prosthesis could dislocate. A. Observe the following precautions to prevent dislocation: 1. Don't bend your hip greater than 90 degrees. 2. Avoid crossing your legs or ankles while standing or lying. 3. Sit with your feet placed 6 inches apart. 4. When sitting, keep your knees below your hips. Sit on a firm surface, avoid deep, soft chairs and couches. Use an elevated toilet seat in the bathroom. 5. Don't bend over at the waist. Use a long handled shoehorn and a sock aid to help you put on your shoes and socks. A cutter and paster press clippings can help you seed cone picker objects that are too high or too low to reach. 6. Keep car riding to a minimum for at least one month after surgery. B. Your balance may be shaky for a while. Use crutches or a walker until directed by your doctor. C. Use hand rails when walking on stairs. D. Wear low heeled shoes with non-slip soles. E. Be sure that your floors are free of things that could trip you - throw rugs , electrical cords, small objects. Avoid wet and waxed floors, especially with crutches and canes. F. Try to walk several times a day with rest periods between. G. Continue with all the exercises taught to you in the hospital. Again, make walking a part of your daily routine. SPECIAL CARE INSTRUCTIONS: VERY IMPORTANT TO READ AND REVIEW A. You may still be at risk for phlebitis and blood clots. 1. Wear surgical stockings (PATRICK hose) for 2 weeks after surgery to improve circulation and reduce swelling. 2. Take Aspirin EC 325mg twice daily for 4 weeks or as directed by your doctor. This is your blood thinner. 3. High risk patients may be prescribed a stronger blood thinner if necessary. 4. If you are on Coumadin normally, your family doctor/pipe fitter marine should monitor your blood work. Expect a phone call the day of or the day after bloodwork is drawn to adjust your dosage. B. You must take antibiotics before having dental work, bladder, bowel and other surgery. Your doctor will provide you with a permanent card to carry describing precautions. C. Call [facility] if you have a fever, redness or swelling around the incision, cloudy drainage from incision, or sudden increase in pain in your hip, not relieved by your regular pain medication. D. Please call the office at if you have any concerns or questions about your operation or recovery. * YOU MAY SHOWER, NO TUB BATHS UNTIL CLEARED BY YOUR DOCTOR. * WEAR PATRICK HOSE 20 HOURS PER DAY FOR 2 WEEKS. * YOU SHOULD USE A WALKER OR CRUTCHES FOR 2-4 WEEKS. THIS WILL HELP PREVENT STRAIN ON YOUR HIP MUSCLE AND ALLOW IT TO HEAL PROPERLY. YOU MAY WEAN TO A CANE TOLERATED. * MOST PATIENTS WILL HAVE HOME NURSING FOR THERAPY. IF YOU DECIDE TO DO OUTPATIENT PHYSICAL THERAPY, PLEASE SCHEDULE THIS 3 TIMES PER WEEK. * DAILY DRESSING CHANGES. KEEP WOUND COVERED. . FOLLOW UP VISIT: If appointment is not already scheduled: Please call [facility] (DR MARTÍNEZ) to make a follow-up appointment for 2 weeks after your surgery at . Core Measure Problem Core Measures: None [employer] Recommendations Date of Service Mar 15, 2017. [employer] Recommendations ACTIVITY RECOMMENDATIONS: SELF CARE INSTRUCTIONS AFTER HIP HEMIARTHROPLASTY. Until the incision and soft tissues around your hip have healed, there is a possibility that the hip prosthesis could dislocate. A. Observe the following precautions to prevent dislocation: 1. Don't bend your hip greater than 90 degrees. 2. Avoid crossing your legs or ankles while standing or lying. 3. Sit with your feet placed 6 inches apart. 4. When sitting, keep your knees below your hips. Sit on a firm surface, avoid deep, soft chairs and couches. Use an elevated toilet seat in the bathroom. 5. Don't bend over at the waist. Use a long handled shoehorn and a sock aid to help you put on your shoes and socks. A cutter and paster press clippings can help you seed cone picker objects that are too high or too low to reach. 6. Keep car riding to a minimum for at least one month after surgery. B. Your balance may be shaky for a while. Use crutches or a walker until directed by your doctor. C. Use hand rails when walking on stairs. D. Wear low heeled shoes with non-slip soles. E. Be sure that your floors are free of things that could trip you - throw rugs , electrical cords, small objects. Avoid wet and waxed floors, especially with crutches and canes. F. Try to walk several times a day with rest periods between. G. Continue with all the exercises taught to you in the hospital. Again, make walking a part of your daily routine. SPECIAL CARE INSTRUCTIONS: VERY IMPORTANT TO READ AND REVIEW A. You may still be at risk for phlebitis and blood clots. 1. Wear surgical stockings (PATRICK hose) for 2 weeks after surgery to improve circulation and reduce swelling. 2. Take Aspirin EC 325mg twice daily for 4 weeks or as directed by your doctor. This is your blood thinner. 3. High risk patients may be prescribed a stronger blood thinner if necessary. 4. If you are on Coumadin normally, your family doctor/pipe fitter marine should monitor your blood work. Expect a phone call the day of or the day after bloodwork is drawn to adjust your dosage. B. You must take antibiotics before having dental work, bladder, bowel and other surgery. Your doctor will provide you with a permanent card to carry describing precautions. C. Call [facility] if you have a fever, redness or swelling around the incision, cloudy drainage from incision, or sudden increase in pain in your hip, not relieved by your regular pain medication. D. Please call the office at if you have any concerns or questions about your operation or recovery. * YOU MAY SHOWER, NO TUB BATHS UNTIL CLEARED BY YOUR DOCTOR. * WEAR PATRICK HOSE 20 HOURS PER DAY FOR 2 WEEKS. * YOU SHOULD USE A WALKER OR CRUTCHES FOR 2-4 WEEKS. THIS WILL HELP PREVENT STRAIN ON YOUR HIP MUSCLE AND ALLOW IT TO HEAL PROPERLY. YOU MAY WEAN TO A CANE TOLERATED. * MOST PATIENTS WILL HAVE HOME NURSING FOR THERAPY. IF YOU DECIDE TO DO OUTPATIENT PHYSICAL THERAPY, PLEASE SCHEDULE THIS 3 TIMES PER WEEK. * DAILY DRESSING CHANGES. KEEP WOUND COVERED. . FOLLOW UP VISIT: If appointment is not already scheduled: Please call [facility] (DR MARTÍNEZ) to make a follow-up appointment for 2 weeks after your surgery at .
[2017-03-25] MEDS ORDERED: VTMD1000 PO (14:59)
--- NOTE | 2017-03-25 15:06 | Orthopedic Progress Note ---
Orthopedic Progress Note Date of Service Mar 25, 2017. Subjective Additional Notes: Asked by nursing to help with staple removal on the left hip wound. Several javier distally were in deeper than others and also appeared to have been bent either during the process of putting them in or due to patient manipulation? Objective Wound is very benign and healing well. All javier removed essentially with staple removal tool. Several javier, 1 proximally and 2 distally removed with a sterile hemostat. During the process an area at the distal apex opened slightly (superficially) No bleeding noted. Steri strips applied. Nursing to place dressing over wound. Date Time Temp Pulse Resp B/P (MAP) Pulse Ox O2 Delivery O2 Flow Rate FiO2 03/25/17 13:45 36.5 88 18 95 Room Air 03/25/17 07:41 36.5 88 18 111/71 (84) 95 Room Air 03/25/17 07:00 Room Air 03/24/17 23:48 Room Air 03/24/17 23:35 37.1 81 18 95/61 (72) 99 Room Air 03/24/17 16:00 95 Room Air 03/24/17 15:38 37.0 90 18 146/80 (102) 95 Room Air Laboratory Results 24 Hours: Test 03/25/17 11:24 Assessment & Plan Assessment: 71 y/o male POD#13 S/P left Bipolar Hemiarthroplasty. [place] removed. Follow up in [address] Dave. ACUTE HYPOXIC RESPIRATORY FAILURE LEFT FEMORAL NECK FRACTURE ORIF performed 03/12. POD # 3. PT / OT when medically stable. OSTEOPOROSIS COPD PULMONARY MASS 3 cm BETHANY density noted on chest x-ray. 8 mm groundglass nodule noted in RUL on CT. DEMENTIA REMOTE HISTORY ALCOHOL ABUSE AAA 5.4 x 4.7 cm infrarenal AAA noted on CT.
== END 2017-03-25 15:24 | DRG 469 ==
LOC: EDBD 09:20 → C.EDB 09:21 → C.MSN 13:14 → ENRESERV 13:33 → C.MSN 14:51 → ENRESERV 03-14 09:54 → C.MSICU 03-14 10:25 → C.2T 03-14 22:10 → EDBEDREQSVC 03-17 19:40 → ENRESERV 03-17 20:35 → C.MSW 03-17 21:46
PROVIDERS: ADMIT Family Medicine; ATTEND Internal Medicine
PROC: 0SRS0J9 Replacement of Left Hip Joint, Femoral Surface with Synthetic Substitute, Cemented, Open Approach (ICD-10-PCS; principal; 2017-03-18)
DX: S72.012A Unspecified intracapsular fracture of left femur, initial encounter for closed fracture (principal); J96.01 Acute respiratory failure with hypoxia; E46 Unspecified protein-calorie malnutrition; J18.9 Pneumonia, unspecified organism; J44.1 Chronic obstructive pulmonary disease with (acute) exacerbation; F03.90 Unspecified dementia, unspecified severity, without behavioral disturbance, psychotic disturbance, mood disturbance, and anxiety; Z87.891 Personal history of nicotine dependence; F10.11 Alcohol abuse, in remission; W19.XXXA Unspecified fall, initial encounter; M81.0 Age-related osteoporosis without current pathological fracture; I71.4 Abdominal aortic aneurysm, without rupture; R91.8 Other nonspecific abnormal finding of lung field; Z85.6 Personal history of leukemia; E11.9 Type 2 diabetes mellitus without complications; R07.89 Other chest pain; Y92.121 Bathroom in nursing home as the place of occurrence of the external cause; Z66 Do not resuscitate

== ENCOUNTER → 2017-04-22 | Outpatient (CLI) | payer OTHER ==
[~2017-04-22] MED LIST: ACET-1311 PO; ADVIN25050 INH; ASCO500T16 PO; BISA10SU38 PR; DONE5TAB26 PO; FOLI1TAB8 PO; HPRIS5M SQ; IPRA1AER2 INH; MINEENE9 PR; MIRT15TA3 PO; MOML PO; MULT-506 PO; NUTR-1049 PO; THIA50TA3 PO; TRAM-10 PO; VTMD1000 PO
--- NOTE | 2017-04-30 12:08 | CODING QUERY NO DIAGNOSIS ---
TREATMENT RENDERED WITHOUT A DIAGNOSIS To promote full compliance with coding requirements relating to patient care, physician participation is requested in all cases of data designer uncertainty. Please assist us with providing a diagnosis/symptom for the test(s) below: A diagnosis/symptom was not documented on your Order. A valid diagnosis/symptom is required to bill all insurances. Please remember that we are unable to code a diagnosis of rule out, probable, possible, questionable, or suspected. Tests that require a diagnosis: DOS: 04/22/17 * UA CATH DIAGNOSIS: * URINE CULTURE CATH DIAGNOSIS: Provider Signature: Date: Thank you [employer] Once completed, please kindly fax back to [phone] For questions please call [phone]
== END ==
LOC: C.LABUPUNI 14:11
PROVIDERS: ATTEND Nurse Practitioner Family
DX: R33.8 Other retention of urine (principal); N40.1 Benign prostatic hyperplasia with lower urinary tract symptoms

== ENCOUNTER → 2017-04-26 | Outpatient (CLI) | payer OTHER ==
--- NOTE | 2017-05-04 12:49 | CODING QUERY NO DIAGNOSIS ---
TREATMENT RENDERED WITHOUT A DIAGNOSIS 43 To promote full compliance with coding requirements relating to patient care, physician participation is requested in all cases of cyber legal advisor uncertainty. Please assist us with providing a diagnosis/symptom for the test(s) below: A diagnosis/symptom was not documented on your Order. A valid diagnosis/symptom is required to bill all insurances. Please remember that we are unable to code a diagnosis of rule out, probable, possible, questionable, or suspected. DOS 04/26/17 Tests that require a diagnosis: * UA CATH DIAGNOSIS: * URINE CULTURE CATH DIAGNOSIS: Provider Signature: Date: Thank you [facility] Once completed, please kindly fax back to [phone] For questions please call [phone]
== END ==
LOC: C.LABUPUNI 21:00
PROVIDERS: ATTEND Nurse Practitioner Family
DX: R33.9 Retention of urine, unspecified (principal)

== ENCOUNTER → 2017-04-27 | Outpatient (CLI) | payer OTHER | LOC: C.LABUPUNI 10:30 | PROVIDERS: ATTEND Nurse Practitioner Family | DX: L89.159 Pressure ulcer of sacral region, unspecified stage (principal) ==